=== PATIENT | male | born 1955 | race Caucasian/White ===

== ENCOUNTER 2019-03-19 02:15 | Outpatient (CLI) | payer OTHER, SELFPAY ==
[2019-03-19 11:22] LABS: Calculated LDL 138; Cholesterol 206 mg/dL (50-200); HDL Cholesterol 40 mg/dL (40-60); Triglyceride 140 mg/dL (30-150)
[2019-03-20 10:13] LABS: PSA, Diagnostic 7.1 ng/ml (0-4.5)
== END 2019-03-19 02:35 ==
PROVIDERS: PCP Emergency Medicine; Visit Provider Emergency Medicine
DX: C61 Malignant neoplasm of prostate (principal); Z00.00 Encounter for general adult medical examination without abnormal findings; Z13.220 Encounter for screening for lipoid disorders
CPT/HCPCS: 36415; 80061; 83721; 84153

== ENCOUNTER 2019-04-03 02:03 | Outpatient (CLI) | payer OTHER, SELFPAY ==
[2019-04-06 09:30] LABS: PSA, Diagnostic 7.6 ng/ml (0-4.5)
== END 2019-04-03 02:23 ==
PROVIDERS: PCP Emergency Medicine; Visit Provider Emergency Medicine
DX: C61 Malignant neoplasm of prostate (principal)
CPT/HCPCS: 36415; 84153

== ENCOUNTER 2019-08-07 00:33 | Outpatient (CLI) | payer OTHER, SELFPAY ==
--- NOTE | 2019-08-07 07:45 | DI.US_ITS ---
EXAM: US PROSTATE BIOPSY CLINICAL HISTORY: asymmetric prostate; elevated PSA TECHNIQUE: Ultrasound was provided for Dr. Armstrong for guidance with performing a prostate biopsy. COMPARISON: No exams were available for comparison FINDINGS: The prostate volume is 17 cc. Central prostate calcifications are noted. Please see procedure for details.
--- NOTE | 2019-08-07 09:50 | PROST_PTH ---
PATIENT: Jeronimo Wu LOC: [facility] U#:[id number] AGE/SX: 64/M ROOM: RE08/07/[address]: Echo Berry DNP : 1955 BED: DIS: 08/07/2019 SPEC #: [id number] RECD: 08/07/19 11:43 STATUS: SOFIA REJakob #: [id number] DOMINIC: 08/07/19 09:[address]: Mayo Nicholas DEPT: Surgical Specimen RECD BY: Sheila Colon ENTERED: 08/07/19 11:46 SP TYPE: PROST OTHR DR: Brian Kidd DO Tissues: 1 - PROSTATE CURRETTINGS 2 - PROSTATE CURRETTINGS 3 - PROSTATE CURRETTINGS 4 - PROSTATE CURRETTINGS 5 - PROSTATE CURRETTINGS 6 - PROSTATE CURRETTINGS 7 - PROSTATE CURRETTINGS 8 - PROSTATE CURRETTINGS 9 - PROSTATE CURRETTINGS 10 - PROSTATE CURRETTINGS 11 - PROSTATE CURRETTINGS 12 - PROSTATE CURRETTINGS Procedures: GROSS AND MICRO LEVEL 4 Comments: [id number]
--- NOTE | 2019-08-07 12:02 | ROE_ITS ---
DATE OF PROCEDURE: August 07, 2019 PRE-PROCEDURE DIAGNOSIS: Elevated PSA POST-PROCEDURE DIAGNOSIS: Same with pathology pending. PROCEDURE: Ultrasound-guided biopsy of the prostate. SURGEON: Mayo Nicholas M.D. ANESTHESIA: Local. COMPLICATIONS: None. HISTORY: This is a 64-year-old gentleman who has had an elevated PSA. His current level is 7.6 ng/m L. We have not identified a prostate nodule, but we have found some asymmetry of his prostate on dig ital rectal examination. He presents for ultrasound-guided biopsy. OPERATIVE REPORT: The patient was brought to the radiology suite on 08/07/19. He was given a mechani josesito and antibiotic bowel prep prior to the procedure. He was placed in the left lateral position. Transrectal imaging of the prostate was performed using a variable megahertz transducer. The prostate was imaged in transverse in longitudinal planes. The prostate was quite small and had a volume measurement of 17 cc's. No specific hypoechoic areas w ere seen in the peripheral zone. A few calcifications were seen in the transition zone. A periprostatic nerve block was then performed using 1% Xylocaine. A total of twelve laterally-direc justian biopsies were taken. Each biopsy was labeled and sent to pathology for permanent section. The patient tolerated this procedure well with no complications. He will follow-up in 1 to 2 weeks t o review his surgical pathology. cc: Brian Kidd D.O.
== END 2019-08-07 00:53 ==
PROVIDERS: PCP Emergency Medicine; Visit Provider Nurse Practitioner Gerontology
DX: N40.0 Benign prostatic hyperplasia without lower urinary tract symptoms (principal); N42.89 Other specified disorders of prostate; R97.20 Elevated prostate specific antigen [PSA]; C61 Malignant neoplasm of prostate
CPT/HCPCS: 55700; 76942; 76872; 88305

== ENCOUNTER 2019-09-11 01:42 | Outpatient (CLI) | payer OTHER, SELFPAY ==
--- NOTE | 2019-09-11 09:30 | DI.NM_ITS ---
EXAM: NM BONE SCAN WHOLE BODY GRP CLINICAL HISTORY: baseline study, prostate cancer, C61. TECHNIQUE: Injected Dose: 25 mCi Tc-99m MDP Delayed Images: 2-3 hours. COMPARISON: No exams were available for comparison FINDINGS: Symmetric axial uptake. Bilateral renal excretion is identified. There is a single focus of increased uptake in the cervical spine anteriorly. This likely is degenerative. X-ray of the spine may be ob tained for further evaluation. No other abnormal activity is seen in the axial or appendicular skele ton to suggest metastatic disease. IMPRESSION: 1. No evidence of metastatic disease. 2. Focus of increased radiotracer uptake seen on the frontal view in the mid cervical spine. This ma y be degenerative in nature. X-ray of the cervical spine may be obtained for further evaluation.
--- NOTE | 2019-09-11 09:52 | DI.CT_ITS ---
EXAM: CT ABDOMEN PELVIS W CLINICAL HISTORY: r/o mets, prostate cancer, C61 TECHNIQUE: Imaging Protocol: Axial computed tomography images with coronal and sagittal reformatted images were created and reviewed CONTRAST MATERIAL: Intravenous: Omnipaque 350 Contrast volume:100 mL contrast route:IV - Oral: Yes COMPARISON: No exams were available for comparison FINDINGS: ABDOMEN: Lung Bases: Normal where visualized. Liver: Normal density. There is a 1.5 centimeters simple cyst in the right lobe of the liver. No raj picious hepatic mass is seen. The portal, superior mesenteric and splenic veins are patent. Gallbladder and biliary tract: No radiodense calculus or dilation. Pancreas: Normal density, no abnormal calcifications or inflammatory process. Spleen: Normal. Kidneys: Normal size, contour and axis. No radiodense stones or obstructive uropathy. There is a 0.8 centimeter cyst in the midpole of the right kidney. No suspicious renal mass is present. Adrenal glands: No masses seen. Abdominal Aorta: Atherosclerosis. No aneurysmal dilatation. PELVIS: Bladder: Symmetric distention, no gross wall thickening. Bowel: No obstruction or bowel wall thickening. Peritoneal cavity: No ascites, collection or mesenteric inflammatory response. Bones: Degenerative changes are seen in the spine. Reproductive organs: Within normal limits. Lymph nodes: Unremarkable. Impression: No evidence of abdominal or pelvic metastatic disease. DATA REPOSITORY: All CT scans at this facility are submitted to the National Radiology Data Registry (NRDR) Dose Index Registry (DIR) with the [employer] ([employer]). RADIATION OPTIMIZATION: All CT scans at this facility use at least one of these dose optimization te chniques: automated exposure control; mA and/or kV adjustment per patient size (includes targeted exa ms where dose is matched to clinical indication); or iterative reconstruction.
[2019-09-11] MEDS: Omnipaque 350 MG/ML 100 ML BTL IV (10:27)
[2019-09-11] MEDS: Normal Saline Flush 10 ML SYR IVP (10:28)
== END 2019-09-11 02:02 ==
PROVIDERS: PCP Emergency Medicine; Visit Provider Urology
DX: C61 Malignant neoplasm of prostate (principal); Z12.89 Encounter for screening for malignant neoplasm of other sites; K76.89 Other specified diseases of liver; N28.1 Cyst of kidney, acquired
CPT/HCPCS: 78306; 74177; 82565; J3490

== ENCOUNTER 2020-06-20 15:18 | Inpatient (IN) | payer OTHER, SELFPAY ==
[2020-06-20] VITALS (83 sets, daily range): BP systolic 94–154; BP diastolic 55–138; PULSE 52–79; RESP 14–29; TEMP 35.9–36.7; O2SAT 92–100
--- NOTE | 2020-06-20 15:00 | RT.EKG_ITS ---
APPROVED REPORT Exam: Resting ECG Patient Location: E HR:51 bpm ECG Measurements Heart Rate 51 AXIS TX 169 P 3 QRSd 108 QRS -65 QT 489 T 27 QTc 452 Conclusion Sinus bradycardia...rate< 60 Left anterior fascicular block...axis(240,-40), init forces inf. Sinus. No STEMI. No old EKG to compare.
--- NOTE | 2020-06-20 15:18 | ED.GENADUL_ITS ---
Discharge Plan Disposition Patient Disposition: [facility] INPATIENT Condition: Stable Discharge Details Clinical Impression: Fall from roof, Multiple fractures of ribs, Multiple pelvic fractures, Pneumot horax, Contusion of left lung Admit Date/Time: 06/20/20 17:57 Admit Provider: Tonya Landry Attending Provider: Tonya Landry Primary Care Provider: Brian Kidd ED Provider: Linda Yarbrough Discharge Data Discharge Date/Time-TO BE ENTERED AT DEPARTURE: 06/20/20 20:05 Medical Decision Making 1520 -- 65-year-old male presents after mechanical fall approximately 13 feet off of his roof onto gravel just prior to arrival presents with left lower rib and right groin pain. Heart rate 50s. BP minimally soft 106/72. Slightly diminished breath sounds right chest. Left lower ribs and left upper quadrant tenderness. No midline spinal tenderness. No orthopedic deformities. Suspect rib and pubic ramus fracture. Consider possible pneumothorax versus intra-abdominal injury. Will obtain CT head/cervical spine/chest /abdomen/pelvis/thoracic and lumbar spine. Pt declines narcotic pain meds. Will give a dose of IV Tylenol and fluids. 1644 -- Labs and imaging reviewed. CT head and cervical spine negative. CT tho racic and lumbar spine note degenerative changes but no acute fracture. CT chest notes multiple displaced rib fractures of 1st, 4th, 5th, 6th, 7th, 8th, 9th, 10th, 11th ribs. Small apical less than 20% pneumothorax. Left lower lobe pulmonary contusion. Multiple minimally displaced pelvic fractures noted. 1714 -- Case discussed with Dr. Arteaga. Based on virtual radiology reading of pelvic fractures, no surgical intervention indicated. Will review imaging and see patient tomorrow. Case d/w Dr. Landry who accepts patient for admission. She contacted anesthesia for bedside rib block to be done in ED. Pt again is declining narcotic pain meds. Pt remains hemodynamically stable and doing well on 2L nasal cannula oxygen. Medical Records Medical records reviewed: Yes I reviewed the patient's medical records. Imaging Data Radiologic Study: Radiologist's impression: CT Head Without Contrast Exam date and time: 06/20/2020 3:47 PM Age: 65 years old Clinical indication: Injury or trauma; Initial encounter; Patient HX: S/P fall off roof TECHNIQUE: Imaging protocol: Computed tomography of the head without contrast. COMPARISON: No relevant prior studies available. FINDINGS: Brain: No evidence for acute transcortical infarct. No mass effect or midline shift. No extra-axial collection. No acute intracranial hemorrhage. Basal cisterns are patent. Ventricles: No ventriculomegaly. Bones/joints: Unremarkable. No acute fracture. Paranasal sinuses: Visualized sinuses are unremarkable. No fluid levels. Mastoid air cells: Visualized mastoid air cells are well aerated. Soft tissues: Unremarkable. IMPRESSION: No acute intracranial hemorrhage or mass effect. CT Cervical Spine Without Contrast Exam date and time: 06/20/2020 3:47 PM Age: 65 years old Clinical indication: Injury or trauma; Initial encounter; Patient HX: S/P fall off roof TECHNIQUE: Imaging protocol: Computed tomography images of the cervical spine without contrast. COMPARISON: No relevant prior studies available. FINDINGS: Vertebrae: No acute fracture or traumatic subluxation. No spondylolisthesis. The atlantooccipital and atlantoaxial articulations are intact. Facet joint alignments are maintained. Discs/Spinal canal/Neural foramina: Age-related degenerative disc disease. Multilevel degenerative changes of the cervical spine. Other bones/joints: Occipital condyles are intact. Nondisplaced fracture of the posterior left 1st rib. Prevertebral Space: No prevertebral soft tissue swelling. Soft tissues: Unremarkable. Lungs: Lung apices are normal. Pleural space: Small apical left pneumothorax. IMPRESSION: 1. No acute fracture or traumatic subluxation of the cervical spine. 2. Nondisplaced fracture of the posterior left 1st rib. 3. Small apical left pneumothorax. CT Chest With Contrast Exam date and time: 06/20/2020 4:13 PM Age: 65 years old Clinical indication: Injury or trauma; Initial encounter; Patient HX: S/P fall off roof, tender L post inf ribs/luq TECHNIQUE: Imaging protocol: Computed tomography of the chest with intravenous contrast. COMPARISON: CT ABDOMEN PELVIS W 09/11/2019 9:52 AM FINDINGS: Thyroid: The visualized thyroid gland is unremarkable. Lungs: There is bilateral dependent atelectasis. There are patchy airspace opacities in the left lower lobe, favoring posttraumatic hemorrhagic contusions. The airways are patent. Remainder of the lungs are otherwise clear. Pleural space: There is a small left pneumothorax (less than 20%). There is a small layering left pleural effusion. Heart: Normal in size and configuration. No pericardial effusion. Pulmonary arteries: Normal in course and caliber. Aorta: Aorta is normal in course and caliber. There is no acute aortic pathology appreciated. Great vessels off aortic arch: Aortic arc vessels are unremarkable. Lymph nodes: No adenopathy. Bones/joints: Displaced fractures to the posterolateral segments of the left 1st, 4th, 5th, 6, 7th, 8th, 9th, 10th, and 11th ribs. The most significantly displaced rib fractures are at the left 7th and 8th ribs. No other acutely displaced skeletal fractures are otherwise appreciated. There are [id number] multilevel degenerative changes of the thoracic spine present. Soft tissues: There is soft tissue emphysema throughout the left thoracic wall. IMPRESSION: 1. Posttraumatic injury to the chest, as manifested by a small (less than 20%) left pneumothorax, small layering left pleural effusion, scattered low volume pulmonary contusions in the left lower lobe, and multilevel left rib fractures as detailed above. 2. No evidence for cardiovascular injury. CT Abdomen And Pelvis With Contrast Exam date and time: 06/20/2020 4:13 PM Age: 65 years old Clinical indication: Injury or trauma; Initial encounter; Patient HX: S/P fall off roof, tender L post inf ribs/luq TECHNIQUE: Imaging protocol: Computed tomography of the abdomen and pelvis with intravenous contrast. COMPARISON: CT ABDOMEN PELVIS W 09/11/2019 9:52 AM FINDINGS: Mediastinal space: A small hiatal hernia is present. Liver: There is a diffuse decrease in hepatic parenchymal density, consistent with fatty infiltration. 1.3 cm fluid density lesion in the right hepatic lobe on image 476 series 7 is most in favor with a small hepatic cyst. This can be further evaluated with ultrasound in a nonemergent setting. No acute injury to the liver is otherwise appreciated. Gallbladder and bile ducts: Normal. No calcified stones. No ductal dilation. Pancreas: Normal. No ductal dilation. Spleen: Normal. No splenomegaly. Adrenals: Normal. No mass. Kidneys and ureters: 1 cm simple right renal cyst for which no follow-up is recommended at this time. The kidneys appear otherwise unremarkable without posttraumatic injury. Stomach and bowel: No bowel obstruction, bowel wall thickening, or other acute bowel pathology is appreciated. There is moderate constipation. Appendix: No evidence of appendicitis. Intraperitoneal space: Mild fat stranding at the right pelvic sidewall, as well as in the left pelvic sidewall, this is most likely related to pelvic fractures. Vasculature: No acute vascular injury is appreciated. Lymph nodes: Unremarkable. No enlarged lymph nodes. Bladder: Unremarkable as visualized. Reproductive: Question of prior prostate surgery. Correlation with surgical history recommended. Bones/joints: Comminuted minimally displaced fracture to the right sacral wing. Fracture lines do not extend into the neural foramina. Linear minimally displaced fracture to the right iliac bone with fracture lines extending into the right sacroiliac joint. Comminuted fracture to the base of the right superior pubic ramus with fracture lines questionably involving the right acetabulum. Comminuted minimally displaced fracture to the right inferior pubic ramus. [id number] multilevel degenerative changes of the lumbar spine are present. No other acutely displaced skeletal fractures are grossly noted. Soft tissues: Soft tissue swelling throughout the left lower back and left buttock subcutaneous fat. Calcified injection granulomas are noted in the subcutaneous tissues of the buttocks. IMPRESSION: 1. Multiple posttraumatic pelvic fractures, as detailed above. 2. No solid organ, hollow viscus, or peritoneal injury is appreciated. CT Thoracic Spine Without Contrast Exam date and time: 06/20/2020 4:13 PM Age: 65 years old Clinical indication: Injury or trauma; Patient HX: S/P fall off roof, tender L post inf ribs/luq TECHNIQUE: Imaging protocol: Computed tomography images of the thoracic spine without contrast. COMPARISON: No relevant prior studies available. FINDINGS: Vertebrae: There is minimal anterior wedging deformity at T11, this appears to be chronic in etiology as I do not see any discrete fractured vertebral fragments at this level. There are multilevel degenerative changes of the thoracic spine present, as manifested by decreased intervertebral disc space, endplate sclerosis, and multilevel anterior osteophytes. No other acutely displaced fractures are appreciated. Discs/Spinal canal/Neural foramina: Spinal canal is patent. No significant bony neural foraminal stenosis is appreciated. Other bones/joints: Multilevel left rib fractures are partially visualized. Soft tissues: Mild soft tissue emphysema throughout the left thoracic wall. Pleural space: Partially visualized small left pleural effusion. Partially visualized small left pneumothorax. IMPRESSION: 1. Mild anterior wedging deformity at T11 is felt to be chronic in etiology. Consider correlation with MRI if clinically warranted. No other acute skeletal injury is otherwise appreciated. 2. Posttraumatic injury to the chest which is fully described in the chest CT performed concomitantly, please review. CT Lumbar Spine Without Contrast Exam date and time: 06/20/2020 4:13 PM Age: 65 years old Clinical indication: Injury or trauma; Patient HX: S/P fall off roof, tender L post inf ribs/luq TECHNIQUE: Imaging protocol: Computed tomography images of the lumbar spine without contrast. COMPARISON: No relevant prior studies available. FINDINGS: Vertebrae: No acute skeletal pathology. Moderate multilevel degenerative changes of the spine, as manifested by multilevel anterior osteophytes and multilevel decrease in intervertebral disc space. There is diffuse facet joint hypertrophy noted. Discs/Spinal canal/Neural foramina: There is prominent posterior disc bulging at L3-L4, L4-L5, and L5-S1. This is causing moderate to severe central canal stenosis at L4-L5, as well as severe bilateral neural foraminal stenosis at L3-L4 and moderate bilateral neural foraminal stenosis at L4-L5. There is mild bilateral neural foraminal stenosis at L5-S1. The spinal canal is otherwise patent. No other significant neural foraminal stenosis is otherwise appreciated. Sacrum/coccyx: Redemonstration/partially visualized fractures to the right iliac bone, right sacral wing, and right superior pubic ramus. Soft tissues: Mild soft tissue swelling partially visualized in the left buttock. IMPRESSION: 1. No acute posttraumatic skeletal injury to the lumbar spine. 2. Multilevel degenerative disc disease, as detailed above. 3. Multiple pelvic fractures which are only partially visualized in this examination and are fully described in the abdomen and pelvic CT performed concomitantly; please review. Lab Data Lab results reviewed: Yes I reviewed the patient's lab results. Labs: Laboratory Tests Range/Units 06/20/20 06/20/20 06/20/20 15:50 15:50 15:50 WBC (4.4-10.8) 10^3/uL 6.40 RBC (4.36-5.78) 10^6/uL 4.25 L Hgb (13.5-17.5) g/dL 13.0 L Hct (40.0-50.0) % 39.0 L MCV (80-95) fL 91.8 MCH (27.0-33.0) pg 30.6 MCHC (32.0-36.0) % 33.3 RDW (11.8-14.1) % 12.3 Plt Count (130-400) 10^3/uL 211 MPV (8.0-11.0) fL 9.9 Immature Gran % 2.3 Neutrophils % 77.2 Lymphocytes % 12.2 Monocytes % 6.7 Eosinophils % 1.3 Basophils % 0.3 Nucleated RBC % % 0 Absolute Neutrophils (1.2-6.7) 10^3/uL 4.94 Absolute Lymphocytes (1.2-3.4) 10^3/uL 0.78 L Absolute Monocytes (0.1-0.8) 10^3/uL 0.43 Absolute Eosinophils (0.0-0.7) 10^3/uL 0.08 Absolute Basophils (0.0-0.2) 10^3/uL 0.02 PT (9.3-11.0) sec 10.3 INR (0.9-1.1) 1.0 APTT (21.0-31.4) sec 21.2 Sodium (136-145) mmol/L 143 Potassium (3.5-5.1) mmol/L 3.1 L Chloride (98-107) mmol/L 106 Carbon Dioxide (21.0-32.0) mmol/L 28.5 Anion Gap (3-11) mmol/L 8.5 BUN (7-18) mg/dL 16 Creatinine (0.70-1.30) mg/dL 1.23 Estimated GFR/1.73 m2 (mL/min/1.73m2) 59.43 Glucose (74-106) mg/dL 137 H Calcium (8.5-10.1) mg/dL 9.0 Magnesium (1.8-2.4) mg/dL 2.2 Total Bilirubin (0.2-1.0) mg/dL 0.4 AST (15-37) U/L 144 H ALT (16-63) U/L 148 H Alkaline Phosphatase (46-116) U/L 83 Troponin I (<0.06) ng/mL < 0.05 Total Protein (6.4-8.2) g/dL 6.8 Albumin (3.4-5.0) g/dL 3.8 Lipase (73-393) U/L 244 ECG Data Attestation: I personally reviewed and interpreted this ECG (s) as follows: Interpretation: Rate of 51, sinus, left anterior fascicular block. No acute ST elevation or depression. No old EKG to compare. MD 169. QRS 108. QTc 452. HPI General Mode of arrival: ambulatory . Date/Time Provider Initiated Documentation: 06/20/20 15:24 . Limitations to Documentation: no limitations . Information obtained by: patient . HPI Narrative: Patient is a 65-year-old male with a history of prostate cancer 60 status post completion of his radiation therapy who presents for left lower rib and back pain status post fall off of his roof at home prior to arrival. Patient states he was working on his roof and grabbing his ladder when he slipped and fell approximately 13 feet down onto gravel landing first on the plantar surface of both of his feet then onto his back then head. He denies LOC or vomiting. He denies headache, chest pain, shortness of breath, abdominal pain, neck or midline back pain. He initially stated that the worst of his pain is below his left scapula but then complained of pain in his right groin/hip area. He has not taken any medication for pain. He is unsure of his tetanus status. Related Data Home Medications Medication Instructions Recorded Confirmed Unknown [No Known Home Meds] 03/17/19 06/20/20 Allergies Allergy/AdvReac Type Severity Reaction Status Date / Time No Known Drug Allergies Allergy Verified 06/20/20 15:25 Review of Systems All systems reviewed & are unremarkable except as noted in HPI and below Constitutional Constitutional: Reports as per HPI, Denies chills and Denies fever(s) Eyes Eyes: Denies blurry vision ENT Ears, Nose, Mouth, and Throat: Denies dizziness, Denies sore throat and Denies throat swelling Cardiovascular Cardiovascular: Denies chest pain and Denies dyspnea Respiratory Respiratory: Denies cough and Denies dyspnea Gastrointestinal Gastrointestinal: Denies abdominal pain, Denies diarrhea and Denies vomiting Genitourinary Genitourinary: Denies hematuria and Denies dysuria Musculoskeletal Musculoskeletal: Reports back pain, Denies numbness and Reports other (Pain in right groin and left lower ribs.) Integumentary/Breasts Skin/Breast: Denies lesions and Denies rash Neurologic Neurologic: Denies dizziness, Denies localized weakness and Denies numbness Allergic/Immunologic Allergic/Immunologic: Denies throat swelling [facility] Medical History (Updated 06/21/20 @ 13:18 by Sandoval Arteaga MD) Prostate cancer Surgical History (Updated 03/12/19 @ 12:49 by Dave Colin) Colonoscopy - MAC 2007; NEG 2013; NEG Tonsillectomy and adenoidectomy Vasectomy Family History (Updated 03/23/20 @ 13:35 by Lisa Amado) Mother Hyperlipidemia Diabetes Father , 68 Essential hypertension Neoplasm LUNG Cancer Lung cancer Grandmother Neoplasm Grandmother Neoplasm Other Personal history of malignant neoplasm Social History (Updated 03/23/20 @ 13:33 by Lisa Amado) Smoking/Tobacco Use Status: Never Alcohol Intake: former Drug use: Never Counseling given: No Household members: spouse Housing: house Communication Needs: None Pets and animals: Yes Pets and animals: cat(s), dog(s) and other Details: rabbit Sexually active: Yes Do you think of yourself as: straight/heterosexual Current gender identity: male What is your relationship status?: How often do you talk on the phone with friends or family?: three or more times per week How often do you get together with friends or relatives?: once per week How often do you attend scientology or faith services?: 1-3 times per year Do you belong to any clubs or organized social groups?: yes Panel score (0-1 are the most socially isolated patients): 3 What type of physical activity do you participate in: running Duration: 60-90 minutes/day Frequency: 5-6 times per week Deisi/Episcopal: Druze Seatbelt use: always Helmet use: Yes Drive intox or ride w/intox 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 Superficial abrasions 2. Superficial abrasions Ears: hearing grossly normal bilaterally, external ears normal and TM's normal bilaterally General nose exam: external nose normal Face and sinus: normal facial exam Mouth: oral mucosae normal Teeth and gingiva: dentition normal Throat: posterior oropharynx normal Eyes General: appearance normal, both eyes and all related structures Eyelids: eyelids normal Pupils: PERRL EOM: EOM intact bilaterally Neck Neck: normal visual inspection Lymphatic: no lymphadenopathy noted Chest Chest: normal inspection of the chest Chest/axillae images: 1. Tenderness to palpation of left anterior, lateral and posterior inferior ribs. No obvious step-off or crepitus, ecchymosis, edema or erythema. No abrasions. Resp Effort & Inspection: normal respiratory effort and able to speak in complete sentences Auscultation: diminished lung sounds on the right throughout Cardio Rate: regular rate Rhythm: regular rhythm GI Inspection: normal to inspection and no abdominal wall ecchymosis Palpation: soft, not firm, no guarding, no hepatosplenomegaly, no masses and tender in the LUQ Auscultation: normal bowel sounds Back/Spine/Pelvis Thoracic/Lumbar Spine: thoracic and lumbar spine normal to inspection Pelvis: no pain with anterior-posterior compression and no pain with lateral compression Back/spine/pelvis image: 1. Tenderness to palpation of left posterior inferior ribs. No evidence of trauma. Skin General skin exam: no rashes or lesions noted Neuro General: patient alert and patient awake Cognition: normal cognition Speech: speech normal Motor: muscle tone normal throughout Sensory Exam: no sensory deficits noted Extrem General: full ROM and capillary refill normal Elbow/forearm/wrist images: 1. Superficial abrasions and skin avulsions, no active bleeding. Minimal contamination with gravel. Upper/lower leg/hip images: 1. Tenderness to palpation. No edema, ecchymoses, erythema, abrasions, lacerations or deformity noted. Ankle/foot/toe images: 1. Superficial abrasion and skin avulsion. No active bleeding. Minimal contamination with gravel. Other: No orthopedic deformity noted. Psych Appearance: grossly normal Mental Status: mental status grossly normal Speech and Movement: speech and movement normal Affect: normal affect Thought Process: normal
--- NOTE | 2020-06-20 15:30 | DI.CT_ITS ---
EXAM: CT CHEST/ABD/PEL W CLINICAL HISTORY: s/p fall off roof, tender L post inf ribs/LUQ TECHNIQUE: COMPARISON: CT CT ABDOMEN PELVIS W from 09/11/[address] ABDOMEN PELVIS W from 09/11/2019 FINDINGS: CT examination of the chest, abdomen, and pelvis was performed. Additional targeted reconstructions of thoracic and lumbar spine were also obtained and are interpreted in conjunction with the study. 1 00 cc of Omnipaque 350 was injected intravenously. There are fractures of the left 1st rib and 4th through 11th ribs posterolaterally. Marked displacem ent of 7th and 8th ribs. Moderate subcutaneous emphysema thoracic. Small apical pneumothorax, appro ximately 5 percent of thoracic volume. There is a small left pleural effusion or hemothorax. There are areas of posterior contusion and/or atelectasis in the left lung. No right lung abnormality seen. No right pleural effusion or pneumoth orax. No evidence of vascular injury. No mediastinal or hilar adenopathy. Tracheobronchial tree ap pears intact. Liver spleen and pancreas appear normal. Gallbladder and bile ducts are CT normal. Adrenals and kid neys are intact, no urinary tract obstruction or calcification, no renal cortical injury identified. No free intraperitoneal air or free intraperitoneal fluid seen. No evidence of a vascular injury in the abdomen. No evidence of bowel injury or obstruction. There are fractures of the superior and inferior pubic rami with moderate displacement and involvemen t the inferior most aspect acetabulum the right. There is a moderately comminuted mildly displaced f racture of the right sacral ala at right SI joint with minimal nondisplaced right iliac bone fracture associated also extending to the SI joint. No thoracic or lumbar spine fracture. There are moderate degenerative changes of the spine. IMPRESSION: Multiple left rib fractures with associated small left pneumothorax, hemothorax, and basilar posterol ateral pulmonary contusion and/or atelectasis. Multiple pelvic fractures as described above, involving iliac bone and sacrum at the right SI joint, as well as superior and inferior right pubic rami. No evidence of vascular injury or solid organ injury. RADIATION DOSE DELIVERED: Total DLP
--- NOTE | 2020-06-20 15:30 | DI.CT_ITS ---
EXAM: CT HEAD CERVICAL SPINE WO COMPARISON: No exams were available for comparison FINDINGS: CT examination of the cervical spine was performed without contrast administration. There is no evide nce of acute cervical spine fracture or dislocation. Tracheolaryngeal structures appear intact. No ce rvical mass or adenopathy. Intervertebral disc spaces are well maintained. Note is made of a small left apical pneumothorax and a nondisplaced fracture of the left 1st rib post eriorly. Please see accompanying chest CT report. Noncontrast cranial CT was performed. Ventricular system is normal in appearance. No evidence of acut e intracranial hemorrhage, mass effect, or midline shift. No calvarial fracture. The orbital and temp oral bone structures appear intact. IMPRESSION: Small left apical pneumothorax and nondisplaced posterior left 1st rib fracture. No evidence of acut e cervical spine injury. No evidence of acute intracranial injury. RADIATION DOSE DELIVERED: 1,985.97mGy.cm Total DLP 1,985.97mGy.cm Total DLP DATA REPOSITORY: All CT scans at this facility are submitted to the National Radiology Data Registry (NRDR) Dose Index Registry (DIR) with the [employer] (A[employer]). RADIATION OPTIMIZATION: All CT scans at this facility use at least one of these dose optimization te chniques: automated exposure control; mA and/or kV adjustment per patient size (includes targeted exa ms where dose is matched to clinical indication); or iterative reconstruction.
[2020-06-20] MEDS: ACETAMINOPHEN 1,000 MG/100 ML BTL 400 MG IVPB (15:59)
[2020-06-20] MEDS: Normal Saline 1,000 ML 1000 ML IV (15:59)
[2020-06-20 16:10] LABS: Abs Immature Grans 0.15 10^3/uL (0.0-0.06); Absolute Basophil Count 0.02 10^3/uL (0.0-0.2); Absolute Eosinophil Count 0.08 10^3/uL (0.0-0.7); Absolute Lymphocyte Count 0.78 10^3/uL (1.2-3.4); Absolute Monocyte Count 0.43 10^3/uL (0.1-0.8); Absolute Neutrophil Count 4.94 10^3/uL (1.2-6.7); Basophils % 0.3; Eosinophils % 1.3; Immature Grans % 2.3; Lymphocytes % 12.2; MCH 30.6 pg (27.0-33.0); MCHC 33.3 % (32.0-36.0); MCV 91.8 fL (80-95); MPV 9.9 fL (8.0-11.0); Monocytes % 6.7; Neutrophils % 77.2; Nucleated RBC 0 %; Platelet Count 211 10^3/uL (130-400); RBC 4.25 10^6/uL (4.36-5.78); RDW 12.3 % (11.8-14.1); RDW-SD 40.8 fL
[2020-06-20 16:13] LABS: PTT Activated 21.2 sec (21.0-31.4); Prothrombin Time 10.3 sec (9.3-11.0)
[2020-06-20 16:21] LABS: ALT 148 U/L (16-63); AST 144 U/L (15-37); Albumin 3.8 g/dL (3.4-5.0); Alkaline Phosphatase 83 U/L (46-116); Anion Gap 8.5 mmol/L (3-11); BUN 16 mg/dL (7-18); Bilirubin, Total 0.4 mg/dL (0.2-1.0); CO2 28.5 mmol/L (21.0-32.0); CREATININE 1.23 mg/dL (0.70-1.30); Chloride 106 mmol/L (98-107); Estimated GFR 59.43 (mL/min/1.73m2); Glucose 137 mg/dL (74-106); Lipase 244 U/L (73-393); Magnesium 2.2 mg/dL (1.8-2.4); Potassium 3.1 mmol/L (3.5-5.1); Sodium 143 mmol/L (136-145); Total Protein 6.8 g/dL (6.4-8.2)
[2020-06-20 16:26] LABS: Troponin I < 0.05 ng/mL (<0.06)
--- NOTE | 2020-06-20 17:02 | DI.VRAD_ITS ---
PROCEDURE INFORMATION: Exam: CT Head Without Contrast Exam date and time: 06/20/2020 3:47 PM Age: 65 years old Clinical indication: Injury or trauma; Initial encounter; Patient HX: S/P fall off roof TECHNIQUE: Imaging protocol: Computed tomography of the head without contrast. COMPARISON: No relevant prior studies available. FINDINGS: Brain: No evidence for acute transcortical infarct. No mass effect or midline shift. No extra-axial collection. No acute intracranial hemorrhage. Basal cisterns are patent. Ventricles: No ventriculomegaly. Bones/joints: Unremarkable. No acute fracture. Paranasal sinuses: Visualized sinuses are unremarkable. No fluid levels. Mastoid air cells: Visualized mastoid air cells are well aerated. Soft tissues: Unremarkable. IMPRESSION: No acute intracranial hemorrhage or mass effect. PROCEDURE INFORMATION: Exam: CT Cervical Spine Without Contrast Exam date and time: 06/20/2020 3:47 PM Age: 65 years old Clinical indication: Injury or trauma; Initial encounter; Patient HX: S/P fall off roof TECHNIQUE: Imaging protocol: Computed tomography images of the cervical spine without contrast. COMPARISON: No relevant prior studies available. FINDINGS: Vertebrae: No acute fracture or traumatic subluxation. No spondylolisthesis. The atlantooccipital and atlantoaxial articulations are intact. Facet joint alignments are maintained. Discs/Spinal canal/Neural foramina: Age-related degenerative disc disease. Multilevel degenerative changes of the cervical spine. Other bones/joints: Occipital condyles are intact. Nondisplaced fracture of the posterior left 1st rib. Prevertebral Space: No prevertebral soft tissue swelling. Soft tissues: Unremarkable. Lungs: Lung apices are normal. Pleural space: Small apical left pneumothorax. IMPRESSION: 1. No acute fracture or traumatic subluxation of the cervical spine. 2. Nondisplaced fracture of the posterior left 1st rib. 3. Small apical left pneumothorax. Dictated and Authenticated by: Adonis Acosta MD. Ordering:BENNY Mckeon MD
--- NOTE | 2020-06-20 17:04 | DI.VRAD_ITS ---
PROCEDURE INFORMATION: Exam: CT Chest With Contrast Exam date and time: 06/20/2020 4:13 PM Age: 65 years old Clinical indication: Injury or trauma; Initial encounter; Patient HX: S/P fall off roof, tender L post inf ribs/luq TECHNIQUE: Imaging protocol: Computed tomography of the chest with intravenous contrast. COMPARISON: CT ABDOMEN PELVIS W 09/11/2019 9:52 AM FINDINGS: Thyroid: The visualized thyroid gland is unremarkable. Lungs: There is bilateral dependent atelectasis. There are patchy airspace opacities in the left lower lobe, favoring posttraumatic hemorrhagic contusions. The airways are patent. Remainder of the lungs are otherwise clear. Pleural space: There is a small left pneumothorax (less than 20%). There is a small layering left pleural effusion. Heart: Normal in size and configuration. No pericardial effusion. Pulmonary arteries: Normal in course and caliber. Aorta: Aorta is normal in course and caliber. There is no acute aortic pathology appreciated. Great vessels off aortic arch: Aortic arc vessels are unremarkable. Lymph nodes: No adenopathy. Bones/joints: Displaced fractures to the posterolateral segments of the left 1st, 4th, 5th, 6, 7th, 8th, 9th, 10th, and 11th ribs. The most significantly displaced rib fractures are at the left 7th and 8th ribs. No other acutely displaced skeletal fractures are otherwise appreciated. There are [id number] multilevel degenerative changes of the thoracic spine present. Soft tissues: There is soft tissue emphysema throughout the left thoracic wall. IMPRESSION: 1. Posttraumatic injury to the chest, as manifested by a small (less than 20%) left pneumothorax, small layering left pleural effusion, scattered low volume pulmonary contusions in the left lower lobe, and multilevel left rib fractures as detailed above. 2. No evidence for cardiovascular injury. PROCEDURE INFORMATION: Exam: CT Abdomen And Pelvis With Contrast Exam date and time: 06/20/2020 4:13 PM Age: 65 years old Clinical indication: Injury or trauma; Initial encounter; Patient HX: S/P fall off roof, tender L post inf ribs/luq TECHNIQUE: Imaging protocol: Computed tomography of the abdomen and pelvis with intravenous contrast. COMPARISON: CT ABDOMEN PELVIS W 09/11/2019 9:52 AM FINDINGS: Mediastinal space: A small hiatal hernia is present. Liver: There is a diffuse decrease in hepatic parenchymal density, consistent with fatty infiltration. 1.3 cm fluid density lesion in the right hepatic lobe on image 476 series 7 is most in favor with a small hepatic cyst. This can be further evaluated with ultrasound in a nonemergent setting. No acute injury to the liver is otherwise appreciated. Gallbladder and bile ducts: Normal. No calcified stones. No ductal dilation. Pancreas: Normal. No ductal dilation. Spleen: Normal. No splenomegaly. Adrenals: Normal. No mass. Kidneys and ureters: 1 cm simple right renal cyst for which no follow-up is recommended at this time. The kidneys appear otherwise unremarkable without posttraumatic injury. Stomach and bowel: No bowel obstruction, bowel wall thickening, or other acute bowel pathology is appreciated. There is moderate constipation. Appendix: No evidence of appendicitis. Intraperitoneal space: Mild fat stranding at the right pelvic sidewall, as well as in the left pelvic sidewall, this is most likely related to pelvic fractures. Vasculature: No acute vascular injury is appreciated. Lymph nodes: Unremarkable. No enlarged lymph nodes. Bladder: Unremarkable as visualized. Reproductive: Question of prior prostate surgery. Correlation with surgical history recommended. Bones/joints: Comminuted minimally displaced fracture to the right sacral wing. Fracture lines do not extend into the neural foramina. Linear minimally displaced fracture to the right iliac bone with fracture lines extending into the right sacroiliac joint. Comminuted fracture to the base of the right superior pubic ramus with fracture lines questionably involving the right acetabulum. Comminuted minimally displaced fracture to the right inferior pubic ramus. Sgyi-vi-xugxduqy multilevel degenerative changes of the lumbar spine are present. No other acutely displaced skeletal fractures are grossly noted. Soft tissues: Soft tissue swelling throughout the left lower back and left buttock subcutaneous fat. Calcified injection granulomas are noted in the subcutaneous tissues of the buttocks. IMPRESSION: 1. Multiple posttraumatic pelvic fractures, as detailed above. 2. No solid organ, hollow viscus, or peritoneal injury is appreciated. COMMENTS: THIS REPORT CONTAINS FINDINGS THAT MAY BE CRITICAL TO PATIENT CARE. The findings were verbally communicated via telephone conference with jovi potts at 5:03 PM EDT on 06/20/2020. The findings were acknowledged and understood. Dictated and Authenticated by: Hai Busby MD. Ordering:BENNY Mckeon MD
--- NOTE | 2020-06-20 17:09 | DI.VRAD_ITS ---
PROCEDURE INFORMATION: Exam: CT Thoracic Spine Without Contrast Exam date and time: 06/20/2020 4:13 PM Age: 65 years old Clinical indication: Injury or trauma; Patient HX: S/P fall off roof, tender L post inf ribs/luq TECHNIQUE: Imaging protocol: Computed tomography images of the thoracic spine without contrast. COMPARISON: No relevant prior studies available. FINDINGS: Vertebrae: There is minimal anterior wedging deformity at T11, this appears to be chronic in etiology as I do not see any discrete fractured vertebral fragments at this level. There are multilevel degenerative changes of the thoracic spine present, as manifested by decreased intervertebral disc space, endplate sclerosis, and multilevel anterior osteophytes. No other acutely displaced fractures are appreciated. Discs/Spinal canal/Neural foramina: Spinal canal is patent. No significant bony neural foraminal stenosis is appreciated. Other bones/joints: Multilevel left rib fractures are partially visualized. Soft tissues: Mild soft tissue emphysema throughout the left thoracic wall. Pleural space: Partially visualized small left pleural effusion. Partially visualized small left pneumothorax. IMPRESSION: 1. Mild anterior wedging deformity at T11 is felt to be chronic in etiology. Consider correlation with MRI if clinically warranted. No other acute skeletal injury is otherwise appreciated. 2. Posttraumatic injury to the chest which is fully described in the chest CT performed concomitantly, please review. PROCEDURE INFORMATION: Exam: CT Lumbar Spine Without Contrast Exam date and time: 06/20/2020 4:13 PM Age: 65 years old Clinical indication: Injury or trauma; Patient HX: S/P fall off roof, tender L post inf ribs/luq TECHNIQUE: Imaging protocol: Computed tomography images of the lumbar spine without contrast. COMPARISON: No relevant prior studies available. FINDINGS: Vertebrae: No acute skeletal pathology. Moderate multilevel degenerative changes of the spine, as manifested by multilevel anterior osteophytes and multilevel decrease in intervertebral disc space. There is diffuse facet joint hypertrophy noted. Discs/Spinal canal/Neural foramina: There is prominent posterior disc bulging at L3-L4, L4-L5, and L5-S1. This is causing moderate to severe central canal stenosis at L4-L5, as well as severe bilateral neural foraminal stenosis at L3-L4 and moderate bilateral neural foraminal stenosis at L4-L5. There is mild bilateral neural foraminal stenosis at L5-S1. The spinal canal is otherwise patent. No other significant neural foraminal stenosis is otherwise appreciated. Sacrum/coccyx: Redemonstration/partially visualized fractures to the right iliac bone, right sacral wing, and right superior pubic ramus. Soft tissues: Mild soft tissue swelling partially visualized in the left buttock. IMPRESSION: 1. No acute posttraumatic skeletal injury to the lumbar spine. 2. Multilevel degenerative disc disease, as detailed above. 3. Multiple pelvic fractures which are only partially visualized in this examination and are fully described in the abdomen and pelvic CT performed concomitantly; please review. Dictated and Authenticated by: Hai Busby MD. Ordering:BENNY Mckeon MD
[2020-06-20] MEDS: Potassium Chloride 20 MEQ TABCR 40 MEQ PO (17:37)
--- NOTE | 2020-06-20 18:49 | HPE_ITS ---
Date of service: 06/20/20 Time of Service: 18:50 Assessment and Plan Assessment and plan (1) Fall from roof: Status: Acute (2) Pneumothorax: Status: Acute (3) Contusion of left lung: Status: Acute (4) Multiple fractures of ribs: Status: Acute Assessment and plan: * anesthesia did rib and femoral blocks-good results pulm toilet Ortho will eval pelvic Fx. Tx is non- surgical. Keep pt in bed until eval pain control PT supportive care hold lovenox for 24 hrs. CXR in am Other injuries may become apparent throughout hosp. stay covid test done in ED (5) Diverticulosis: Status: Acute (6) Tinnitus: Status: Acute (7) Multiple pelvic fractures: Status: Acute (8) Prostate cancer: Status: Chronic History of Present Illness Consults Consult date: 06/20/20 Requesting physician: Linda Yarbrough Narrative: pt fell 13' off of roof. Occurred while adjusting ladder. no s/s of CVA or [place] prior to accident. NO CP or SOB. No LOC. C spine cleared by ED. rib block adn pelvic block done no n/v. no numbness or tingling in hands/feet. covid was completed c/o pain when taking deep breathes adn moving R leg. Recently finished Tx or prostate CA. Review of Systems All systems reviewed & are unremarkable except as noted in HPI and below PFSH Medical History (Updated 06/20/20 @ 18:00 by Linda Yarbrough DO) Prostate cancer Surgical History (Updated 03/12/19 @ 12:49 by Dave Colin) Colonoscopy - MAC 2007; NEG 2013; NEG Tonsillectomy and adenoidectomy Vasectomy Family History (Updated 03/23/20 @ 13:35 by Lisa Amado) Mother Hyperlipidemia Diabetes Father , 68 Essential hypertension Neoplasm LUNG Cancer Lung cancer Grandmother Neoplasm Grandmother Neoplasm Other Personal history of malignant neoplasm Social History (Updated 03/23/20 @ 13:33 by Lisa Amado) Smoking/Tobacco Use Status: Never Alcohol Intake: former Drug use: Never Counseling given: No Household members: spouse Housing: house Communication Needs: None Pets and animals: Yes Pets and animals: cat(s), dog(s) and other Details: rabbit Sexually active: Yes Do you think of yourself as: straight/heterosexual Current gender identity: male What is your relationship status?: How often do you talk on the phone with friends or family?: three or more times per week How often do you get together with friends or relatives?: once per week How often do you attend yarsani or yarsani services?: 1-3 times per year Do you belong to any clubs or organized social groups?: yes Panel score (0-1 are the most socially isolated patients): 3 What type of physical activity do you participate in: running Duration: 60-90 minutes/day Frequency: 5-6 times per week Deisi/Confucianism: [employer] Seatbelt use: always Helmet use: Yes Drive intox or ride w/intox corporate driver: No Meds Home Medications and Allergies Home Medications Medication Instructions Recorded Confirmed Type Unknown [No Known Home Meds] 03/17/19 06/20/20 History Allergies Allergy/AdvReac Type Severity Reaction Status Date / Time No Known Drug Allergies Allergy Verified 06/20/20 15:25 Exam Const General: cooperative, healthy appearing, comfortable, no acute distress, well developed and well groomed Nutritional Appearance: average body habitus and well nourished Orientation: alert, awake and oriented x3 HENMT Head: normal to inspection, normocephalic, abrasion and scalp tenderness Ears: hearing grossly normal bilaterally and external ears normal General nose exam: external nose normal Face and sinus: normal facial exam and sinuses nontender Mouth: oral mucosae normal, lip normal, tongue normal and moist mucous membranes Teeth and gingiva: dentition normal Eyes General: appearance normal, both eyes and all related structures Conjunctivae: conjunctivae normal Sclera: sclerae normal Pupils: PERRL Neck Neck: normal visual inspection and full ROM Chest Chest: normal inspection of the chest Resp Effort & Inspection: normal respiratory effort, able to speak in complete sentences, no cough, no nasal flaring, not tachypneic and no use of accessory muscles Auscultation: clear to auscultation bilaterally, no rales, no rhonchi and no wheezes Cardio Jugular venous pressure: no JVD Rate: regular rate Rhythm: regular rhythm GI Inspection: normal to inspection, no edema and non-distended Palpation: soft, no masses, nontender and No ascites Auscultation: normal bowel sounds Back/Spine/Pelvis Back: CVA tenderness (left) and back tenderness (not over SP/TP but over the rib Fx. no abrasions ) Cervical Spine: normal cervical lordosis and cervical ROM normal Thoracic/Lumbar Spine: thoracic and lumbar spine normal to inspection Pelvis: tenderness over symphysis pubis Other: pain over R iliac crest Skin General skin exam: no rashes or lesions noted Trauma: no lacerations or abrasions Neuro General: patient alert, patient oriented x3, oriented, tone normal, moves all extremities, no focal motor deficits and CN's II-XI intact bilaterally Cranial Nerves: CN's II-XI intact bilaterally, sense of smell intact, EOM intact bilaterally and facial strength normal Cognition: normal cognition Speech: speech normal Gait: normal gait Motor: muscle tone normal throughout Extrem General: normal to inspection and no clubbing, cyanosis or edema Other: pain when moving R leg. no pain in long bones. motor 4/5 in all except RLE. pulses 2/2- coratid/ulnar/DP abrasion L forarm and LLE Psych Appearance: grossly normal and well kempt Mental Status: mental status grossly normal Speech and Movement: speech and movement normal Affect: normal affect Results Labs Result diagrams: 06/20/20 15:50 06/20/20 15:50 Labs: Laboratory Results - last 24 hr 06/20/20 06/20/20 06/20/20 15:50 15:50 15:50 WBC 6.40 RBC 4.25 L Hgb 13.0 L Hct 39.0 L MCV 91.8 MCH 30.6 MCHC 33.3 RDW 12.3 Plt Count 211 MPV 9.9 Immature Gran % 2.3 Neutrophils % 77.2 Lymphocytes % 12.2 Monocytes % 6.7 Eosinophils % 1.3 Basophils % 0.3 Nucleated RBC % 0 Absolute Neutrophils 4.94 Absolute Lymphocytes 0.78 L Absolute Monocytes 0.43 Absolute Eosinophils 0.08 Absolute Basophils 0.02 PT 10.3 INR 1.0 APTT 21.2 Sodium 143 Potassium 3.1 L Chloride 106 Carbon Dioxide 28.5 Anion Gap 8.5 BUN 16 Creatinine 1.23 Estimated GFR/1.73 m2 59.43 Glucose 137 H Calcium 9.0 Magnesium 2.2 Total Bilirubin 0.4 AST 144 H ALT 148 H Alkaline Phosphatase 83 Troponin I < 0.05 Total Protein 6.8 Albumin 3.8 Lipase 244 Last Vital Signs Temp 35.9 C L 06/20/20 15:12 Pulse 70 06/20/20 18:31 Resp 25 H 06/20/20 18:31 BP 125/80 06/20/20 18:31 Pulse Ox 98 06/20/20 18:31 COVID-19 Screening Have you,or household,traveled outside [place] in last 14 days?: No Had IN PERSON contact w/suspected or confirmed C-19 person: No
[2020-06-20] MEDS: Bupivacaine 0.25% Pres-Free 30 ML VIAL ×2 (18:54→18:55)
[2020-06-20] MEDS: Bupivacaine 0.25% Pres-Free 10 ML VIAL (18:54)
--- NOTE | 2020-06-20 19:19 | NUR.NOTE ---
procedure in room as planned , pt tolerated well Nursing Note:
[2020-06-20 19:44] LABS: Bilirubin Negative (Negative); Blood Trace-lysed (Negative); Clarity Clear (Clear); Glucose Negative (Negative); Ketones Negative (Negative); Leukocyte Esterase Negative (Negative); Nitrite Negative (Negative); Urobilinogen 0.2 EU/dL (Up TO 0.2)
[2020-06-20] MEDS: Normal Saline 1,000 ML 82 ML IV (19:47)
[2020-06-20 19:55] LABS: Bacteria Negative HPF (Negative); C & S Indicated? No; Casts Negative LPF (Negative); Crystals Negative HPF (Negative); Epithelial Cells Rare HPF (Negative); Mucus Negative (Negative); WBC 0-2 HPF (0-5)
--- NOTE | 2020-06-20 19:55 | NUR.NOTE ---
pt had a block procedure as planned at the right groin for pain , tolerated well Nursing Note:
[2020-06-20] MEDS: Gabapentin 100 MG CAP PO (21:16)
[2020-06-20] MEDS: Ketorolac 15 MG/ML VIAL IVP (21:16)
[2020-06-20 21:52] LABS: Troponin I < 0.05 ng/mL (<0.06)
[2020-06-21] VITALS (141 sets, daily range): BP systolic 102–143; BP diastolic 63–95; PULSE 61–146; RESP 14–31; TEMP 36.7–37.4; O2SAT 92–98
[2020-06-21] MEDS: Ketorolac 15 MG/ML VIAL IVP ×4 (02:00→20:15)
[2020-06-21 06:53] LABS: ALT 105 U/L (16-63); AST 66 U/L (15-37); Albumin 3.1 g/dL (3.4-5.0); Alkaline Phosphatase 60 U/L (46-116); Anion Gap 7.2 mmol/L (3-11); BUN 14 mg/dL (7-18); Bilirubin, Total 0.6 mg/dL (0.2-1.0); CO2 25.8 mmol/L (21.0-32.0); CREATININE 1.02 mg/dL (0.70-1.30); Calcium 8.6 mg/dL (8.5-10.1); Chloride 108 mmol/L (98-107); Glucose 115 mg/dL (74-106); Sodium 141 mmol/L (136-145); Total Protein 5.4 g/dL (6.4-8.2)
[2020-06-21 06:56] LABS: Abs Immature Grans 0.09 10^3/uL (0.0-0.06); Absolute Basophil Count 0.01 10^3/uL (0.0-0.2); Absolute Eosinophil Count 0.01 10^3/uL (0.0-0.7); Absolute Lymphocyte Count 0.37 10^3/uL (1.2-3.4); Absolute Monocyte Count 0.63 10^3/uL (0.1-0.8); Basophils % 0.1; Eosinophils % 0.1; HCT 31.1 % (40.0-50.0); HGB 10.8 g/dL (13.5-17.5); Immature Grans % 1.2; MCHC 34.7 % (32.0-36.0); MCV 89.4 fL (80-95); Monocytes % 8.5; Neutrophils % 85.1; Nucleated RBC 0 %; Platelet Count 142 10^3/uL (130-400); RBC 3.48 10^6/uL (4.36-5.78); RDW 12.5 % (11.8-14.1); RDW-SD 40.7 fL; WBC 7.41 10^3/uL (4.4-10.8)
[2020-06-21 06:58] LABS: Troponin I < 0.05 ng/mL (<0.06)
--- NOTE | 2020-06-21 07:13 | DI.VRAD_ITS ---
PROCEDURE INFORMATION: Exam: XR Chest, 1 View Exam date and time: 06/21/2020 6:50 AM Age: 65 years old Clinical indication: Injury or trauma; Fall; Follow-up exam; Blunt trauma (contusions or hematomas); Injury date: 06/20/20; Injury details: Trauma/ptx TECHNIQUE: Imaging protocol: XR of the chest Views: 1 view. COMPARISON: CT CHEST/ABD/PEL W 06/20/2020 4:11 PM FINDINGS: Lungs: Medial basilar opacity at the left lung base may reflect atelectasis versus pneumonia. Pleural space: Unremarkable. No pleural effusion. No pneumothorax. Heart/Mediastinum: Unremarkable. No cardiomegaly. Bones/joints: Unremarkable. IMPRESSION: Medial basilar opacity at the left lung base may reflect atelectasis versus pneumonia. Dictated and Authenticated by: Israel Gatica MD. Ordering:HAZEL Castaneda MD
--- NOTE | 2020-06-21 07:55 | PGE_ITS ---
Date of Service Date of service: 06/21/20 Time of Service: 07:55 Assessment and Plan Assessment and plan (1) Fall from roof: Status: Acute (2) Pneumothorax: Status: Acute Assessment and plan: Chest Xray this morning showed small left apical pneumothorax. (3) Contusion of left lung: Status: Acute (4) Multiple fractures of ribs: Status: Acute Assessment and plan: Good effect with rib blocks. Pain well controlled Encouraged deep breathing and use of incentive spirometer supportive care Other injuries may become apparent throughout hosp. stay covid test done in ED (5) Diverticulosis: Status: Acute (6) Tinnitus: Status: Acute (7) Multiple pelvic fractures: Status: Acute Assessment and plan: Awaiting Ortho Consult Keep patient in bed until he has been seen by Ortho. (8) Prostate cancer: Status: Chronic Subjective Subjective Interval history since last seen: Patient reports that his pain is well controlled this morning. Mild rib discomfort with deep breathing. Slept well over night. Exam Const General: cooperative, healthy appearing and comfortable Orientation: alert and oriented x3 Resp Effort & Inspection: normal respiratory effort, no audible wheezes and no cough Objective Last Vital Signs Temp 36.7 C 06/21/20 05:12 Pulse 69 06/21/20 05:12 Resp 21 06/21/20 05:12 BP 112/69 06/21/20 05:12 Pulse Ox 95 06/21/20 05:12 Laboratory Results - last 24 hr 06/20/20 06/20/20 06/20/20 15:50 15:50 15:50 WBC 6.40 RBC 4.25 L Hgb 13.0 L Hct 39.0 L MCV 91.8 MCH 30.6 MCHC 33.3 RDW 12.3 Plt Count 211 MPV 9.9 Immature Gran % 2.3 Neutrophils % 77.2 Lymphocytes % 12.2 Monocytes % 6.7 Eosinophils % 1.3 Basophils % 0.3 Nucleated RBC % 0 Absolute Neutrophils 4.94 Absolute Lymphocytes 0.78 L Absolute Monocytes 0.43 Absolute Eosinophils 0.08 Absolute Basophils 0.02 PT 10.3 INR 1.0 APTT 21.2 Sodium 143 Potassium 3.1 L Chloride 106 Carbon Dioxide 28.5 Anion Gap 8.5 BUN 16 Creatinine 1.23 Estimated GFR/1.73 m2 59.43 Glucose 137 H Calcium 9.0 Magnesium 2.2 Total Bilirubin 0.4 AST 144 H ALT 148 H Alkaline Phosphatase 83 Troponin I < 0.05 Total Protein 6.8 Albumin 3.8 Lipase 244 Urine Color Urine Clarity Urine pH Ur Specific [place] Urine Protein Urine Ketones Urine Blood Urine Nitrite Urine Bilirubin Urine Urobilinogen Ur Leukocyte Esterase Urine RBC Urine WBC Ur Epithelial Cells Urine Crystals Urine Bacteria Urine Casts Urine Mucus Ur Culture Indicated? Urine Glucose 06/20/20 06/20/20 06/21/20 19:30 21:05 06:07 WBC RBC Hgb Hct MCV MCH MCHC RDW Plt Count MPV Immature Gran % Neutrophils % Lymphocytes % Monocytes % Eosinophils % Basophils % Nucleated RBC % Absolute Neutrophils Absolute Lymphocytes Absolute Monocytes Absolute Eosinophils Absolute Basophils PT INR APTT Sodium 141 Potassium 4.0 D Chloride 108 H Carbon Dioxide 25.8 Anion Gap 7.2 BUN 14 Creatinine 1.02 Estimated GFR/1.73 m2 >= 60.00 Glucose 115 H Calcium 8.6 Magnesium Total Bilirubin 0.6 AST 66 H ALT 105 H Alkaline Phosphatase 60 Troponin I < 0.05 < 0.05 Total Protein 5.4 L Albumin 3.1 L Lipase Urine Color Yellow Urine Clarity Clear Urine pH 5.0 Ur Specific [place] 1.010 Urine Protein Negative Urine Ketones Negative Urine Blood Trace-lysed H Urine Nitrite Negative Urine Bilirubin Negative Urine Urobilinogen 0.2 Ur Leukocyte Esterase Negative Urine RBC 3-5 H Urine WBC 0-2 Ur Epithelial Cells Rare Urine Crystals Negative Urine Bacteria Negative Urine Casts Negative Urine Mucus Negative Ur Culture Indicated? No Urine Glucose Negative 06/21/20 06:07 WBC 7.41 RBC 3.48 L Hgb 10.8 L D Hct 31.1 L D MCV 89.4 MCH 31.0 MCHC 34.7 RDW 12.5 Plt Count 142 MPV 10.0 Immature Gran % 1.2 Neutrophils % 85.1 Lymphocytes % 5.0 Monocytes % 8.5 Eosinophils % 0.1 Basophils % 0.1 Nucleated RBC % 0 Absolute Neutrophils 6.30 Absolute Lymphocytes 0.37 L Absolute Monocytes 0.63 Absolute Eosinophils 0.01 Absolute Basophils 0.01 PT INR APTT Sodium Potassium Chloride Carbon Dioxide Anion Gap BUN Creatinine Estimated GFR/1.73 m2 Glucose Calcium Magnesium Total Bilirubin AST ALT Alkaline Phosphatase Troponin I Total Protein Albumin Lipase Urine Color Urine Clarity Urine pH Ur Specific [place] Urine Protein Urine Ketones Urine Blood Urine Nitrite Urine Bilirubin Urine Urobilinogen Ur Leukocyte Esterase Urine RBC Urine WBC Ur Epithelial Cells Urine Crystals Urine Bacteria Urine Casts Urine Mucus Ur Culture Indicated? Urine Glucose
[2020-06-21 08:23] LABS: COVID-19 RT-PCR UVMMC Result Negative (Negative)
--- NOTE | 2020-06-21 08:30 | DI.RAD_ITS ---
EXAM: XR PORTABLE CHEST AP CLINICAL HISTORY: ptx/trauma TECHNIQUE: COMPARISON: CT CT THORACIC LUMBAR SPINE REC from 06/20/[address] CHEST/ABD/PEL W from 06/20/2020 FINDINGS: Multiple left rib fractures again noted. Probable small left apical pneumothorax noted. Mild hazy d ensity overlying left lower lung field, effusion versus contusion. Probable atelectasis at the left lung base. Appropriate follow-up studies requested. No gross interval change from chest CT findings obtained yesterday evening. IMPRESSION: RADIATION DOSE DELIVERED: Total DLP
[2020-06-21] MEDS: ACETAMINOPHEN 1,000 MG/100 ML BTL 400 MG IVPB ×3 (08:42→16:39)
--- NOTE | 2020-06-21 08:51 | PDOC.CMIN ---
- If Service Date Differs Date of service: 06/21/20 Time of Service: 08:51 Care Management Initial Assess REASON FOR HOSPITALIZATION:: Fall from roof PAST MEDICAL HISTORY/PAST SURGICAL HISTORY:: Medical History (Updated 06/20/20 @ 18:00 by Linda Yarbrough DO). Prostate cancer. Surgical History (Updated 03/12/19 @ 12:49 by Dave Colin). Colonoscopy - MAC. 2007; NEG. 2013; NEG. Tonsillectomy and adenoidectomy. Vasectomy PREVIOUS FUNCTIONAL STATUS/SOCIAL/FAMILY SUPPORTS:: Randy lives with his and 2 sons in a single family home in [place] 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 He is healthy, active and independent at baserline. CURRENT FUNCTIONAL STATUS:: Randy was sitting up in bed when CM met with him. He engaged readily in conversation and was pleasant and exhibited a good sense of humor. he described the fall that resulted in his injuries and talked a bit about his family. ADVANCE DIRECTIVES:: None on file. Has a blank copy which he hopes to complete while at [facility] Has patient been provided with info about the portal/API?: Yes Did the patient sign up for the portal?: Yes (formerly) CODE STATUS:: Full Code CURRENT HOME/COMMUNITY SERVICES/EQUIPMENT:: none PRIMARY CARE PHYSICIAN:: Brian Kidd POTENTIAL DISCHARGE NEEDS:: Follow up with PCP, surgeon and discharge plan of care PATIENT/FAMILY EDUCATION NEEDS:: Discharge plan, follow up, limitations, Ask Me Three TRANSPORTATION:: via private vehicle with family PLAN:: Randy will likely be discharged home with no new services. He will follow up with his PCP and discharge plan of care. He will transport home with via private vehicle.CM will continue to support patient, family and discharge planning needs.
[2020-06-21] MEDS: Bacitracin 30 GM TUBE TP (09:06)
--- NOTE | 2020-06-21 10:47 | W.NUTRFU ---
Date of service: 06/21/20 Time of Service: 10:47 Nutritional Follow up NOTE: 65 year old male admitted to ICU s/p fall from roof with multiple rib fractures. BMI 27, wnl for age. Tolerating clears, diet advanced per surgery. Will continue to monitor and follow. Does not appear at nutritional risk at this time. Time Spent in Nutritional Counseling and Treatment: 0 time spent face to face
--- NOTE | 2020-06-21 13:11 | W.ORTHOCONSU ---
Date of service: 06/21/20 Time of Service: 13:11 History of Present Illness History of Present Illness Chief Complaint: Right groin pain Narrative: There is a 65-year-old right ear male who was working on his roof yesterday when he slipped and fell approximately 13 feet down to the gravel. He was seen and evaluated emergency room. He was found to have broken ribs on the left and a minimal pneumothorax. He was found to have a fracture of the right side of his pelvis as well. Fracture of the inferior and superior pubic rami possibly reaching the acetabulum. She also was noted to have fracture of the posterior iliac wing not entering the SI joint. He reports that he feels quite comfortable at rest to the ICU. He is not asking for any pain medicines. He has not been out of bed yet. He denies any numbness in his right lower extremity. Assessment and Plan Assessment and plan (1) Multiple pelvic fractures: Status: Acute Assessment and plan: Assessment: These appropriate fractures do not pose an operative indication. The hip joint is not involved on the right side. Pubic rami fracture in the posterior iliac wing fracture should heal without sequelae. I do think he needs to use a leg assistant professor of surgery on the right side him get his right leg in and out of bed. He should be able to be mobilized with a walker partial weightbearing as tolerated to the right leg. Plan: I have sent a consult the PT to begin mobilizing him today. He will be partial weightbearing as tolerated to the right leg with a walker. There also can provide him with a leg assistant professor of surgery to help him get his right leg in and out of bed, which will be the most difficulty he has. He should follow-up with me in 1 month. Qualifiers: Encounter type: initial encounter Fracture alignment: without disruption of pelvic ring COUNT INCLUDES THE [facility] Medical History (Updated 06/21/20 @ 13:18 by Sandoval Arteaga MD) Prostate cancer Surgical History (Updated 03/12/19 @ 12:49 by Dave Colin) Colonoscopy - MAC 2007; NEG 2013; NEG Tonsillectomy and adenoidectomy Vasectomy Family History (Updated 03/23/20 @ 13:35 by Lisa Amado) Mother Hyperlipidemia Diabetes Father , 68 Essential hypertension Neoplasm LUNG Cancer Lung cancer Grandmother Neoplasm Grandmother Neoplasm Other Personal history of malignant neoplasm Social History (Updated 03/23/20 @ 13:33 by Lisa Xiong Smoking/Tobacco Use Status: Never Alcohol Intake: former Drug use: Never Counseling given: No Household members: spouse Housing: house Communication Needs: None Pets and animals: Yes Pets and animals: cat(s), dog(s) and other Details: rabbit Sexually active: Yes Do you think of yourself as: straight/heterosexual Current gender identity: male What is your relationship status?: How often do you talk on the phone with friends or family?: three or more times per week How often do you get together with friends or relatives?: once per week How often do you attend yarsani or episcopal services?: 1-3 times per year Do you belong to any clubs or organized social groups?: yes Panel score (0-1 are the most socially isolated patients): 3 What type of physical activity do you participate in: running Duration: 60-90 minutes/day Frequency: 5-6 times per week Deisi/Rastafarian: Congregation Seatbelt use: always Helmet use: Yes Drive intox or ride w/intox car pick up driver: No Exam Narrative Exam Narrative: Neurovascular examination of the right foot is completely normal at this time, with 5/5 strength to resistance in all muscle groups. I can flex his right hip to 90 degrees and internal and external rotation do not cause him any pain. He does experience pain when I abduct him about 20 degrees. Her pain is in his right groin. I reviewed the CT scan of his pelvis. CT scan shows a fracture of the inferior and superior pubic rami on the right. I do not feel her fractures extend into the acetabulum. He has a small vertical fracture of the posterior ilium on the right. This fracture does not extend into the SI joint on the right. There is no significant displacement of the fractures. Results Last Vital Signs Temp 36.7 C 06/21/20 11:28 Pulse 85 06/21/20 13:00 Resp 20 06/21/20 13:00 BP 143/93 H 06/21/20 13:00 Pulse Ox 93 06/21/20 13:00 Labs Result diagrams: 06/21/20 06:07 06/21/20 06:07 Labs: Laboratory Results - last 24 hr 06/20/20 06/20/20 06/20/20 15:50 15:50 15:50 WBC 6.40 RBC 4.25 L Hgb 13.0 L Hct 39.0 L MCV 91.8 MCH 30.6 MCHC 33.3 RDW 12.3 Plt Count 211 MPV 9.9 Immature Gran % 2.3 Neutrophils % 77.2 Lymphocytes % 12.2 Monocytes % 6.7 Eosinophils % 1.3 Basophils % 0.3 Nucleated RBC % 0 Absolute Neutrophils 4.94 Absolute Lymphocytes 0.78 L Absolute Monocytes 0.43 Absolute Eosinophils 0.08 Absolute Basophils 0.02 PT 10.3 INR 1.0 APTT 21.2 Sodium 143 Potassium 3.1 L Chloride 106 Carbon Dioxide 28.5 Anion Gap 8.5 BUN 16 Creatinine 1.23 Estimated GFR/1.73 m2 59.43 Glucose 137 H Calcium 9.0 Magnesium 2.2 Total Bilirubin 0.4 AST 144 H ALT 148 H Alkaline Phosphatase 83 Troponin I < 0.05 Total Protein 6.8 Albumin 3.8 Lipase 244 Urine Color Urine Clarity Urine pH Ur Specific [place] Urine Protein Urine Ketones Urine Blood Urine Nitrite Urine Bilirubin Urine Urobilinogen Ur Leukocyte Esterase Urine RBC Urine WBC Ur Epithelial Cells Urine Crystals Urine Bacteria Urine Casts Urine Mucus Ur Culture Indicated? Urine Glucose COVID-19 PCR Nasopharyn COVID-19 PCR Ref Test Perform Site 06/20/20 06/20/20 06/20/20 18:35 19:30 21:05 WBC RBC Hgb Hct MCV MCH MCHC RDW Plt Count MPV Immature Gran % Neutrophils % Lymphocytes % Monocytes % Eosinophils % Basophils % Nucleated RBC % Absolute Neutrophils Absolute Lymphocytes Absolute Monocytes Absolute Eosinophils Absolute Basophils PT INR APTT Sodium Potassium Chloride Carbon Dioxide Anion Gap BUN Creatinine Estimated GFR/1.73 m2 Glucose Calcium Magnesium Total Bilirubin AST ALT Alkaline Phosphatase Troponin I < 0.05 Total Protein Albumin Lipase Urine Color Yellow Urine Clarity Clear Urine pH 5.0 Ur Specific [place] 1.010 Urine Protein Negative Urine Ketones Negative Urine Blood Trace-lysed H Urine Nitrite Negative Urine Bilirubin Negative Urine Urobilinogen 0.2 Ur Leukocyte Esterase Negative Urine RBC 3-5 H Urine WBC 0-2 Ur Epithelial Cells Rare Urine Crystals Negative Urine Bacteria Negative Urine Casts Negative Urine Mucus Negative Ur Culture Indicated? No Urine Glucose Negative COVID-19 PCR Negative Nasopharyn COVID-19 PCR Not Applicable Ref Test [facility]21[facility] 06/21/20 06:07 06:07 WBC 7.41 RBC 3.48 L Hgb 10.8 L D Hct 31.1 L D MCV 89.4 MCH 31.0 MCHC 34.7 RDW 12.5 Plt Count 142 MPV 10.0 Immature Gran % 1.2 Neutrophils % 85.1 Lymphocytes % 5.0 Monocytes % 8.5 Eosinophils % 0.1 Basophils % 0.1 Nucleated RBC % 0 Absolute Neutrophils 6.30 Absolute Lymphocytes 0.37 L Absolute Monocytes 0.63 Absolute Eosinophils 0.01 Absolute Basophils 0.01 PT INR APTT Sodium 141 Potassium 4.0 D Chloride 108 H Carbon Dioxide 25.8 Anion Gap 7.2 BUN 14 Creatinine 1.02 Estimated GFR/1.73 m2 >= 60.00 Glucose 115 H Calcium 8.6 Magnesium Total Bilirubin 0.6 AST 66 H ALT 105 H Alkaline Phosphatase 60 Troponin I < 0.05 Total Protein 5.4 L Albumin 3.1 L Lipase Urine Color Urine Clarity Urine pH Ur Specific [place] Urine Protein Urine Ketones Urine Blood Urine Nitrite Urine Bilirubin Urine Urobilinogen Ur Leukocyte Esterase Urine RBC Urine WBC Ur Epithelial Cells Urine Crystals Urine Bacteria Urine Casts Urine Mucus Ur Culture Indicated? Urine Glucose COVID-19 PCR Nasopharyn COVID-19 PCR Ref Test Perform Site
[2020-06-21] MEDS: Normal Saline 1,000 ML 50 ML IV (13:18)
[2020-06-21] MEDS: Normal Saline Flush 10 ML SYR IVP ×2 (14:45→20:17)
--- NOTE | 2020-06-21 14:45 | PHA.REVIEW ---
Pharmacy Admission Review - Admission Clinical Review (Last Updated 08/24/19 @ 16:27 by Mayo Nicholas MD) Fall from roof (Acute) Multiple fractures of ribs (Acute) Multiple pelvic fractures (Acute) Pneumothorax (Acute) Contusion of left lung (Acute) Diverticulosis (Acute) Tinnitus (Acute) No Known Drug Allergies Allergy (Verified 06/20/20 15:25) Height 5 ft 9 in Weight 83.5 kg - Renal Dosing Renal Dosing: BUN 14 mg/dL (7-18) 06/21/20 06:07 Creatinine 1.02 mg/dL (0.70-1.30) 06/21/20 06:07 Medications needing adjustments: Reviewed (Crcl ~74 mL/min current meds okay) - Anticoagulation Anticoagulation: Hgb 10.8 g/dL (13.5-17.5) L D 06/21/20 06:07 Hct 31.1 % (40.0-50.0) L D 06/21/20 06:07 Plt Count 142 10^3/uL (130-400) 06/21/20 06:07 INR 1.0 (0.9-1.1) 06/20/20 15:50 Creatinine 1.02 mg/dL (0.70-1.30) 06/21/20 06:07 DVT Prohphylaxis: Reviewed (Enoxaparin held for 24 hours per H&PMD to continue to hold for now due to drop in H/H.) - Opiate Usage Scheduled Bowel Reg ordered if on Opiates?: No (has prn docusate ordered) - Relevant Labs Sodium 141 mmol/L (136-145) 06/21/20 06:07 Potassium 4.0 mmol/L (3.5-5.1) D 06/21/20 06:07 Chloride 108 mmol/L (98-107) H 06/21/20 06:07 Magnesium 2.2 mg/dL (1.8-2.4) 06/20/20 15:50 Electrolytes, C-Reactive P, ESR: Reviewed (AST-66 ALT-105 both have decreased since admission) - DM Control DM Control: Glucose 115 mg/dL (74-106) H 06/21/20 06:07 Insulin Dosing: Reviewed (BG slighltly elevated this morning, no DM noted in pts medical history) - Heart Failure/WV Heart Failure/WV: Troponin I < 0.05 ng/mL (<0.06) 06/21/20 06:07 EF%, TRACEY's, B-Blockers, Diuretics: N/A - BP Control BP Control: Blood Pressure [Left Arm] 112/69 Blood Pressure [Left Arm] 124/82 Blood Pressure 143/93 Blood Pressure 113/76 Blood Pressure 117/67 Blood Pressure 110/69 If elevated: Reviewed (BP has mostly been within normal limits with a couple of highs and lows.) - Qtc Review If Elevated: N/A (QTc 452) - IV to PO Switch IV Medications: Reviewed - Home Meds Home Med List reviewed: Reviewed (No home meds noted. Per external med history pt was taking tamsulosin 1 cap PO BID. Mentioned to provider who was going to check to see if pt still taking this.) - Current meds Current Medication Order Review: Reviewed - Comments Comments/Follow Ups: Watch BP, K+, BG, H/H, LFTs, and for med changes (IV to PO, possible start of VTE prophylaxis pending H/H tomorrow, possible need of additional BM meds)
--- NOTE | 2020-06-21 15:44 | IN_ITS ---
Date of service: 06/21/20 Time of Service: 15:44 PT Notes Visit Reasons: FALL FROM HEIGHT/RIB FX;PTX/PELVIS FX Physical Therapy Inpatient Initial Evaluation Date: 06/21/2020 Referring Doctor: Sandoval Arteaga MD PT Orders: PT CONSULT: Eval for assistive device. He is PWBAT to right leg. Leg senior java web application developer to help him get his right leg in and out of bed. Precautions: Fall. Standard. PWB on R LE. Patient Profile/Admitting Diagnosis: Randy is a 65-year-old male with prostate ca ncer who presented to the ED on 06/20/2022 a mechanical fall 13 feet from a roof while doing an nan detailing onto a gravelled ground surface. Patient is diagnosed with pneumothorax, contusion of left lung, multiple rib fractures, multiple pelvic fractures involving the inferior and the superior pubic rami as well as the the posterior iliac wing, diverticulosis, and tinnitus. PMHX: Medical History (Updated 06/20/20 @ 18:00 by Linda Yarbrough DO) Prostate cancer Surgical History (Updated 03/12/19 @ 12:49 by Dave Colin) Colonoscopy - MAC 2007; NEG 2013; NEG Tonsillectomy and adenoidectomy Vasectomy Social History/Home Situation: Randy lives in a private home with the . Independent with all aspects of ADLs without the need for any assistive ambulatory device nor adaptive equipment. 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 He verbalizes that he plans to stay on the main floor of the house on a recliner while recovering as his bedroom is on the second floor of the house. Equipment Owned/DME: None Subjective: Randy reports significant pain in his right hip and ribs with supine to sit movement transition. He does say that the use of the leg senior java web application developer has really made a difference. He denies headache, chest pain, and dizziness throughout PT session. Objective: General Observation: Telemetry monitoring in place. IV access in right UE. Mental Status: Alert and oriented x4 Pain: 3?4/10 to right hip and rib area Vital Signs: Heart rate high of 142 bpm and low of 76 bpm throughout session ROM: Right Upper Extremity: Shoulder Flexion WFL. Shoulder abduction WFL. Elbow flexion WFL. Wrist flexion WFL. Opening and closing of hand WFL. Left Upper Extremity: Shoulder Flexion WFL. Shoulder abduction WFL. Elbow flexion WFL. Wrist flexion WFL. Opening and closing of hand WFL. Right Lower Extremity: Hip flexion only allows flexion to 90 and is unable to bend beyond 90 degrees while seated at edge of bed. Hip abduction WFL. Knee flexion 45 degrees to 90 degrees. Knee extension only allows up to -45 degrees ankle dorsiflexion WFL. Ankle plantarflexion WFL. Left Lower Extremity: Hip flexion WFL. Hip abduction WFL. Knee flexion WFL. Ankle dorsiflexion WFL. Ankle plantarflexion WFL. Strength: Right Upper Extremity: Shoulder flexors 5/5. Shoulder abductors 5/5. Elbow flexors 5/5. Elbow extensors 5/5. Inspector Automatic Typewriter strong. Left Upper Extremity: Shoulder flexors 5/5. Shoulder abductors 5/5. Elbow flexors 5/5. Elbow extensors 5/5. Inspector Automatic Typewriter strong. Right Lower Extremity: Hip flexors 3-/5. Hip abductors 3-/5. Knee flexors 3-/5. Knee extensors 3-/5. Ankle dorsiflexors 4/5. Ankle plantarflexors 4/5. Left Lower Extremity:Hip flexors 4/5. Hip abductors 4/5. Knee flexors 5/5. Knee extensors 5/5. Ankle dorsiflexors 4/5. Ankle plantarflexors 5/5. Sensation: Intact as to pain and pressure on bilateral lower extremities. Bed Mobility/Transfers: Supine to sit minimal assist to BLE, requires use of leg senior java web application developer on right LE Sit to stand contact-guard assist Stand to sit contact-guard assist Bed to chair contact-guard assist Gait: Tolerated in room ambulation of 6 steps forward and 4 steps back using front wheeled walker with partial weightbearing on the right side with contact- guard assist PT with 3?4/10 pain in the right hip and ribs with step to gait pattern. Balance: Static Sitting: Normal Dynamic Sitting: Good Static Standing: Fair Dynamic Standing: Fair Special Tests: Mobility Limitations Standardized Measure [facility] AM-PAC 6 clicks Basic Mobility Inpatient Short Form: Raw Score: 1558% deficit CMS Score: 58% deficit Informed Consent/Education: Patient instructed in purpose of PT consult and plan of care. Assessment: Bill demonstrates significant functional mobility decline requiring the use of a front wheeled walker for all mobility ADL performance as well as contact-guard assist from caregiver, difficulty with walking, impairment with balance, and increased risk for falls due to admitting diagnoses. Randy is a 65-year-old male with prostate cancer who presented to the ED on 06/20/2022 a mechanical fall 13 feet from a roof while doing an nan detailing onto a gravelled ground surface. Patient is diagnosed with pneumothorax, contusion of left lung, multiple rib fractures, multiple pelvic fractures involving the inferior and the superior pubic rami as well as the the posterior iliac wing, diverticulosis, and tinnitus. Patient presents with clinical signs and symptoms consistent with current/admitting diagnoses that have resulted to mobility limitations, gait instability, generalized weakness, and impairment of motor control as demonstrated by the following impairment level findings: 1. Decreased strength to right hip major muscle groups 2. Impaired sitting/standing balance 3. Impaired activity tolerance 4. Limitation of joint range of motion in right hip Impairments are contributing to the following functional limitations: 1. Dependent bed mobility skills 2. Increased dependence with transfers 3. Inability to safely ambulate without assistive device and physical assistance 4. Increase completion time for mobility ADL performance 5. Increased fall risk 6. Inability to negotiate steps alone safely Patient is assessed as a 57373 moderate complexity based on the following: History: 65-year-old male with impairment level findings, functional limitations, and past medical history as indicated above Examination: Demonstrable impairment in strength, balance, and mobility level with underlying impairments and functional limitations as documented above Presentation:Evolving Decision Makin moderate complexity Goals: Goals X1 week 1. Supine-Sit independent 2. Sit-Supine independent 3. Sit-Stand independent 4. Stand-Sit independent 5. Bed-Chair independent 6. Chair-Bed independent 7. Independent gait on level surface with use of least restrictive device for at least 300 feet without report of pain nor dyspnea 8. Independent stair negotiation while holding onto bilateral rails for at least 5 steps without report of pain nor dyspnea 9. Independent with home exercise program 10. Good static and dynamic standing balance/tolerance Plan of Care/Treatment Plan: 1-2x/day, 7 days/week x 1 week. Plan of care has been reviewed with the PLASTER FORM MAKER providing the service under Physical Therapy direction. Initiate Physical Therapy intervention for strengthening, bed mobility, transfers, gait, stairs, balance training, use of assistive device. DISCHARGE RECOMMENDATIONS: Patient will benefit from the use of a front wheel walker to maximize independence at discharge destination. Patient will benefit from home health PT services in order to progress mobility level using least restrictive assistive ambulatory device, assess home safety, identify additional equipment needs, and establish a functional maintenance program that will incr ease ability of patient to remain at home. TREATMENT CODE/TIME: 9716 2 x 25 minutes beginning at 15:44 PM. Thank you for the opportunity to participate in the care of this patient. Melody Bearden PT, DPT, CLT [facility] [place], [place]
--- NOTE | 2020-06-21 16:00 | RT.EKG_ITS ---
APPROVED REPORT Exam: Resting ECG Patient Location: I HR:123 bpm ECG Measurements Heart Rate 123 AXIS NC [id number] P [id number] QRSd 95 QRS -54 QT 320 T 46 QTc 458 Conclusion Atrial fibrillation. Left anterior fascicular block...axis(240,-40), init forces inf
[2020-06-21 17:14] LABS: HCT 29.1 % (40.0-50.0); HGB 10.1 g/dL (13.5-17.5); MCH 31.2 pg (27.0-33.0); MCHC 34.7 % (32.0-36.0); MCV 89.8 fL (80-95); MPV 9.9 fL (8.0-11.0); Platelet Count 114 10^3/uL (130-400); RBC 3.24 10^6/uL (4.36-5.78); RDW 12.4 % (11.8-14.1); RDW-SD 40.9 fL; WBC 6.57 10^3/uL (4.4-10.8)
[2020-06-21 17:31] LABS: ALT 88 U/L (16-63); AST 55 U/L (15-37); Albumin 2.9 g/dL (3.4-5.0); Alkaline Phosphatase 59 U/L (46-116); Anion Gap 8.5 mmol/L (3-11); BUN 12 mg/dL (7-18); Bilirubin, Total 0.6 mg/dL (0.2-1.0); CO2 24.5 mmol/L (21.0-32.0); CREATININE 1.22 mg/dL (0.70-1.30); Calcium 7.9 mg/dL (8.5-10.1); Chloride 103 mmol/L (98-107); Estimated GFR 59.99 (mL/min/1.73m2); Glucose 146 mg/dL (74-106); Potassium 3.5 mmol/L (3.5-5.1); Sodium 136 mmol/L (136-145); Total Protein 5.4 g/dL (6.4-8.2); Troponin I < 0.05 ng/mL (<0.06)
[2020-06-21] MEDS: Metoprolol 5 MG/5 ML VIAL IVP (17:35)
[2020-06-21] MEDS: Metoprolol 5 MG/5 ML VIAL 2.5 MG IVP (18:23)
--- NOTE | 2020-06-21 19:34 | W.MEDCONSULT ---
Date of service: 06/21/20 Time of Service: 19:34 Assessment and Plan Assessment and plan (1) Atrial fibrillation with rapid ventricular response: Status: Acute Assessment and plan: Unclear as to etiology. It does not sound like he has a problem with frequent snoring although his brother has a history of sleep apnea.. He has had no exertional dyspnea or exertional chest pain prior to his traumatic fall. We will check thyroid function test in the morning and cycle his troponin levels through the night. We will proceed with an echocardiogram in the morning. I am recommending starting low-dose Lopressor orally with PRN IV Lopressor as needed for sustained heart rates of 130 or higher. I would not anticoagulate him beyond DVT prophylaxis at this point as he has a low risk for stroke his [id number] score was 0. He had a CT of his chest and abdomen and pelvis last night with contrast and it showed no evidence for pulmonary emboli. He does have left lung contusion and multiple rib fractures. It is possible that the atrial fibrillation may have been precipitated just from the chest wall trauma. We will get an echocardiogram to rule out cardiac contusion. (2) Contusion of left lung: Status: Acute Assessment and plan: Analgesic management as per surgery Qualifiers: Encounter type: initial encounter Qualified Code(s): S27.321A - Contusion of lung, unilateral, initial encounter (3) Pneumothorax: Status: Acute Assessment and plan: Follow-up chest x-ray in the morning to assess stability currently asymptomatic. Qualifiers: Pneumothorax type: traumatic Encounter type: initial encounter Qualified Code(s): S27.0XXA - Traumatic pneumothorax, initial encounter (4) Multiple pelvic fractures: Status: Acute Assessment and plan: Analgesic management as per surgery and orthopedic service. Continue with physical therapy as tolerated. Qualifiers: Encounter type: initial encounter Fracture alignment: with stable disruption of pelvic ring (5) Multiple fractures of ribs: Status: Acute Assessment and plan: Continue incentive spirometry and pain management as per surgery Qualifiers: Encounter type: initial encounter Laterality: left History of Present Illness History of Present Illness Chief Complaint: Atrial fibrillation Narrative: 65-year-old male history of prostate cancer status post completion of treatment who presented emergency room last night after sustaining a fall off of a ladder falling 13 feet and sustaining multiple left-sided rib fractures associated with a small apical pneumothorax as well as multiple pelvic fractures involving right ilium and sacrum at the SI joint as well as right superior and inferior pubic rami involving the inferior right acetabulum. Patient underwent multiple nerve blocks. Patient was admitted to general surgery service with consultations to orthopedics. He is being treated conservatively as these are nonoperative fractures. This afternoon patient developed rapid atrial fibrillation with heart rates in the 150-160 range while ambulating. Patient was asymptomatic during the episode. He underwent serial troponins last night this morning to rule out an acute PA as a cause for his fall from the ladder. Apparently there was no syncope with his fall last night and no CVA occurred and no myocardial infarction occurred. With his rapid atrial fibrillation he is responded nicely to IV Lopressor and has transiently gone in and out of sinus rhythm. His atrial fibrillation is now at a controlled rate. He is not currently a candidate for systemic anticoagulation due to his multiple traumatic injuries. Serial troponins are being monitored again this evening and the first set was negative at 5 PM. His ECG did not show acute ST elevation but he has diffuse ST depression that is upward sloping of about 1 mm across the precordial leads as well as limb lead I in limb lead II. Patient denies any lightheadedness or dizziness prior to the fall and no chest pain or pressure prior to the fall and he had no syncope. He had good relief of his pain with the nerve block last night. He was getting up for physical therapy to the chair late this afternoon around 4 PM when he developed the tachycardia. He was entirely asymptomatic. Since the rapid atrial fibrillation has been treated with a couple doses of Lopressor and is in transient return to sinus rhythm only to go back into atrial fibrillation at a controlled rate. Review of his [id number] score is 0 indicating no need for long-term anticoagulation. I discussed in great detail with the patient potential causes for rapid atrial fibrillation including occult ischemic heart disease, essential hypertension, sleep apnea, hyperthyroidism, valvular heart disease, pulmonary embolism. Clinically he has no chest pain or dyspnea making ischemic heart disease and pulmonary embolism unlikely. He was not sedentary prior to the fall. I told him that we would pursue further work-up including obtaining an echocardiogram in the morning monitoring serial troponin levels and getting thyroid function tests in the morning. Review of Systems All systems reviewed & are unremarkable except as noted in HPI and below PFSH Medical History (Updated 06/21/20 @ 20:40 by Logan Mullen) Prostate cancer Surgical History (Updated 03/12/19 @ 12:49 by Dave Colin) Colonoscopy - MAC 2007; NEG 2013; NEG Tonsillectomy and adenoidectomy Vasectomy Family History (Updated 03/23/20 @ 13:35 by Lisa Amado) Mother Hyperlipidemia Diabetes Father , 68 Essential hypertension Neoplasm LUNG Cancer Lung cancer Grandmother Neoplasm Grandmother Neoplasm Other Personal history of malignant neoplasm Social History (Updated 03/23/20 @ 13:33 by Lisa Amado) Smoking/Tobacco Use Status: Never Alcohol Intake: former Drug use: Never Counseling given: No Household members: spouse Housing: house Communication Needs: None Pets and animals: Yes Pets and animals: cat(s), dog(s) and other Details: rabbit Sexually active: Yes Do you think of yourself as: straight/heterosexual Current gender identity: male What is your relationship status?: How often do you talk on the phone with friends or family?: three or more times per week How often do you get together with friends or relatives?: once per week How often do you attend rastafari or latter-day services?: 1-3 times per year Do you belong to any clubs or organized social groups?: yes Panel score (0-1 are the most socially isolated patients): 3 What type of physical activity do you participate in: running Duration: 60-90 minutes/day Frequency: 5-6 times per week Deisi/Taoism: Roman Catholic Seatbelt use: always Helmet use: Yes Drive intox or ride w/intox experienced truck driver: No Exam Narrative Exam Narrative: Middle-age male sitting up in bed watching TV in no distress. He is entirely alert and oriented person place time circumstance able to carry on full conversations with no dyspnea. HEENT is unremarkable. Neck is supple nontender normal carotid pulse no bruits no cervical lymphadenopathy no thyromegaly. Lungs are clear to auscultation although he has some diminished breath sounds at the left lung base. Heart irregular irregular at a controlled rate without murmur or rub Abdomen soft and nontender Lower extremities without calf tenderness or edema Results Last Vital Signs Temp 36.7 C 06/21/20 11:28 Pulse 84 06/21/20 18:23 Resp 26 H 06/21/20 17:10 BP 118/80 06/21/20 18:23 Pulse Ox 97 06/21/20 15:20 Labs Result diagrams: 06/21/20 12:44 06/21/20 17:05 Labs: Laboratory Results - last 24 hr 06/20/20 06/20/20 06/20/20 18:35 19:30 21:05 WBC RBC Hgb Hct MCV MCH MCHC RDW Plt Count MPV Immature Gran % Neutrophils % Lymphocytes % Monocytes % Eosinophils % Basophils % Nucleated RBC % Absolute Neutrophils Absolute Lymphocytes Absolute Monocytes Absolute Eosinophils Absolute Basophils Sodium Potassium Chloride Carbon Dioxide Anion Gap BUN Creatinine Estimated GFR/1.73 m2 Glucose Calcium Total Bilirubin AST ALT Alkaline Phosphatase Troponin I < 0.05 Total Protein Albumin Urine Color Yellow Urine Clarity Clear Urine pH 5.0 Ur Specific [place] 1.010 Urine Protein Negative Urine Ketones Negative Urine Blood Trace-lysed H Urine Nitrite Negative Urine Bilirubin Negative Urine Urobilinogen 0.2 Ur Leukocyte Esterase Negative Urine RBC 3-5 H Urine WBC 0-2 Ur Epithelial Cells Rare Urine Crystals Negative Urine Bacteria Negative Urine Casts Negative Urine Mucus Negative Ur Culture Indicated? No Urine Glucose Negative COVID-19 PCR Negative Nasopharyn COVID-19 PCR Not Applicable Ref Test Perform Site [facility] lab 06/21/20 06/21/20 06/21/20 06:07 06:07 12:44 WBC 7.41 6.57 RBC 3.48 L 3.24 L Hgb 10.8 L D 10.1 L Hct 31.1 L D 29.1 L MCV 89.4 89.8 MCH 31.0 31.2 MCHC 34.7 34.7 RDW 12.5 12.4 Plt Count 142 114 L MPV 10.0 9.9 Immature Gran % 1.2 Neutrophils % 85.1 Lymphocytes % 5.0 Monocytes % 8.5 Eosinophils % 0.1 Basophils % 0.1 Nucleated RBC % 0 Absolute Neutrophils 6.30 Absolute Lymphocytes 0.37 L Absolute Monocytes 0.63 Absolute Eosinophils 0.01 Absolute Basophils 0.01 Sodium 141 Potassium 4.0 D Chloride 108 H Carbon Dioxide 25.8 Anion Gap 7.2 BUN 14 Creatinine 1.02 Estimated GFR/1.73 m2 >= 60.00 Glucose 115 H Calcium 8.6 Total Bilirubin 0.6 AST 66 H ALT 105 H Alkaline Phosphatase 60 Troponin I < 0.05 Total Protein 5.4 L Albumin 3.1 L Urine Color Urine Clarity Urine pH Ur Specific [place] Urine Protein Urine Ketones Urine Blood Urine Nitrite Urine Bilirubin Urine Urobilinogen Ur Leukocyte Esterase Urine RBC Urine WBC Ur Epithelial Cells Urine Crystals Urine Bacteria Urine Casts Urine Mucus Ur Culture Indicated? Urine Glucose COVID-19 PCR Nasopharyn COVID-19 PCR Ref Test Perform Site 06/21/20 17:05 WBC RBC Hgb Hct MCV MCH MCHC RDW Plt Count MPV Immature Gran % Neutrophils % Lymphocytes % Monocytes % Eosinophils % Basophils % Nucleated RBC % Absolute Neutrophils Absolute Lymphocytes Absolute Monocytes Absolute Eosinophils Absolute Basophils Sodium 136 Potassium 3.5 Chloride 103 Carbon Dioxide 24.5 Anion Gap 8.5 BUN 12 Creatinine 1.22 Estimated GFR/1.73 m2 59.99 Glucose 146 H Calcium 7.9 L Total Bilirubin 0.6 AST 55 H ALT 88 H Alkaline Phosphatase 59 Troponin I < 0.05 Total Protein 5.4 L Albumin 2.9 L Urine Color Urine Clarity Urine pH Ur Specific [place] Urine Protein Urine Ketones Urine Blood Urine Nitrite Urine Bilirubin Urine Urobilinogen Ur Leukocyte Esterase Urine RBC Urine WBC Ur Epithelial Cells Urine Crystals Urine Bacteria Urine Casts Urine Mucus Ur Culture Indicated? Urine Glucose COVID-19 PCR Nasopharyn COVID-19 PCR Ref Test Perform Site
[2020-06-21] MEDS: Gabapentin 100 MG CAP PO (20:55)
[2020-06-21] MEDS: Metoprolol 12.5 MG TAB PO (20:55)
[2020-06-21 21:52] LABS: Troponin I < 0.05 ng/mL (<0.06)
--- NOTE | 2020-06-21 23:24 | NUR.NOTE ---
12-15-pt was in sinus rhythm at the beginning of the 12-15 shift while resting in bed. PT and this nurse got pt oob and he stated feeling great but his heart rate started to increase with very frequent pac's. Pt then went into a-fib with heart rates as high as 150 but pt denied any discomfort. put back to bed with 2 nurses and ekg was done. reportred to MD. medicated with 5mg iv lopressor with heart rates decreasing to 80's and 90's and going in and out of a-fib and sinus. pt mostly stayed in a-fib for the 12-15 shift [address] controlled rate[address] Mullen in and assessed pt.
[2020-06-22] VITALS (68 sets, daily range): BP systolic 99–130; BP diastolic 65–82; PULSE 58–110; RESP 14–29; TEMP 36.7–37.6; O2SAT 90–100
[2020-06-22] MEDS: ACETAMINOPHEN 1,000 MG/100 ML BTL 400 MG IVPB ×3 (00:14→16:30)
--- NOTE | 2020-06-22 01:37 | NUR.NOTE ---
0139-awake. checking e-mails. In good spirits. states pain is at a 1. voided 500 cc clear straw colored urine in urinal Working with leg strap from PT to help excercise right leg. keep it from getting stiff
[2020-06-22] MEDS: Ketorolac 15 MG/ML VIAL IVP ×3 (02:22→15:40)
[2020-06-22] MEDS: Metoprolol 12.5 MG TAB PO (05:52)
--- NOTE | 2020-06-22 06:30 | NUR.NOTE ---
0600-spontaneously converted to NSR. EKG done for rhythm change.
--- NOTE | 2020-06-22 07:00 | RT.EKG_ITS ---
APPROVED REPORT Exam: Resting ECG Patient Location: I HR:64 bpm ECG Measurements Heart Rate 64 AXIS SC 190 P 35 QRSd 103 QRS -41 QT 400 T 33 QTc 414 Conclusion Sinus rhythm...normal P axis, V-rate 60- 99 Left axis deviation...QRS axis (-30,-90)
[2020-06-22 07:26] LABS: HGB 10.7 g/dL (13.5-17.5)
[2020-06-22 07:41] LABS: Anion Gap 3.9 mmol/L (3-11); BUN 11 mg/dL (7-18); CO2 27.1 mmol/L (21.0-32.0); CREATININE 1.03 mg/dL (0.70-1.30); Calcium 8.4 mg/dL (8.5-10.1); Chloride 107 mmol/L (98-107); Glucose 102 mg/dL (74-106); Potassium 3.9 mmol/L (3.5-5.1); Sodium 138 mmol/L (136-145)
[2020-06-22 07:55] LABS: Calculated LDL 86 mg/dL (<100); Cholesterol 155 mg/dL (<200); HDL Cholesterol 51 mg/dL (40-60); Magnesium 1.9 mg/dL (1.8-2.4); TSH (W/Ref FT4) 1.29 uIU/mL (0.36-3.74); Triglyceride 90 mg/dL (<150)
--- NOTE | 2020-06-22 08:12 | W.PM.PROGNOT ---
Documented by User: RASHAAD Hall 06/22/20 08:15 Date of Service Date of service: 06/22/20 Time of Service: 08:13 Assessment and Plan Assessment and plan (1) Fall from roof: Status: Acute (2) Pneumothorax: Status: Acute Assessment and plan: Chest Xray this morning Qualifiers: Encounter type: initial encounter Pneumothorax type: traumatic Qualified Code(s): S27.0XXA - Traumatic pneumothorax, initial encounter (3) Contusion of left lung: Status: Acute Qualifiers: Encounter type: initial encounter Qualified Code(s): S27.321A - Contusion of lung, unilateral, initial encounter (4) Multiple fractures of ribs: Status: Acute Assessment and plan: Good effect with rib blocks. Pain well controlled Encouraged deep breathing and use of incentive spirometer supportive care Qualifiers: Encounter type: initial encounter Laterality: left (5) Diverticulosis: Status: Acute (6) Tinnitus: Status: Acute (7) Multiple pelvic fractures: Status: Acute Assessment and plan: Per Ortho Consult- weight bearing as tolerated. Qualifiers: Encounter type: initial encounter Fracture alignment: with stable disruption of pelvic ring (8) Prostate cancer: Status: Chronic (9) Atrial fibrillation with rapid ventricular response: Status: Acute Assessment and plan: Per nsg converted to normal rhythm around 5-6am this morning. Patient is asymptomatic Echo and EKG ordered for this morning. Subjective Subjective Interval history since last seen: Just a little sore with certain movements. Exam Const General: cooperative, healthy appearing and comfortable Orientation: alert and oriented x3 Resp Effort & Inspection: normal respiratory effort, no audible wheezes and no cough Objective Last Vital Signs Temp 37.6 C H 06/22/20 00:00 Pulse 69 06/22/20 06:01 Resp 18 06/22/20 06:30 BP 113/76 06/22/20 06:01 Pulse Ox 94 06/22/20 06:30 Laboratory Results - last 24 hr 06/20/20 06/21/20 06/21/20 18:35 12:44 17:05 WBC 6.57 RBC 3.24 L Hgb 10.1 L Hct 29.1 L MCV 89.8 MCH 31.2 MCHC 34.7 RDW 12.4 Plt Count 114 L MPV 9.9 Sodium 136 Potassium 3.5 Chloride 103 Carbon Dioxide 24.5 Anion Gap 8.5 BUN 12 Creatinine 1.22 Estimated GFR/1.73 m2 59.99 Glucose 146 H Calcium 7.9 L Magnesium Total Bilirubin 0.6 AST 55 H ALT 88 H Alkaline Phosphatase 59 Troponin I < 0.05 Total Protein 5.4 L Albumin 2.9 L Triglycerides Total Cholesterol LDL Cholesterol, Calc HDL Cholesterol TSH COVID-19 PCR Negative Nasopharyn COVID-19 PCR Not Applicable Ref Test Perform Site [facility] lab 06/21/20 06/22/20 06/22/20 21:15 06:33 06:33 WBC RBC Hgb 10.7 L Hct MCV MCH MCHC RDW Plt Count MPV Sodium Potassium Chloride Carbon Dioxide Anion Gap BUN Creatinine Estimated GFR/1.73 m2 Glucose Calcium Magnesium 1.9 Total Bilirubin AST ALT Alkaline Phosphatase Troponin I < 0.05 Total Protein Albumin Triglycerides 90 Total Cholesterol 155 LDL Cholesterol, Calc 86 HDL Cholesterol 51 TSH 1.29 COVID-19 PCR Nasopharyn COVID-19 PCR Ref Test Perform Site 06/22/20 06:33 WBC RBC Hgb Hct MCV MCH MCHC RDW Plt Count MPV Sodium 138 Potassium 3.9 Chloride 107 Carbon Dioxide 27.1 Anion Gap 3.9 BUN 11 Creatinine 1.03 Estimated GFR/1.73 m2 >= 60.00 Glucose 102 Calcium 8.4 L Magnesium Total Bilirubin AST ALT Alkaline Phosphatase Troponin I Total Protein Albumin Triglycerides Total Cholesterol LDL Cholesterol, Calc HDL Cholesterol TSH COVID-19 PCR Nasopharyn COVID-19 PCR Ref Test Perform Site Documented by User: Tonya Landry DO 06/22/20 23:27 Assessment and Plan Assessment and plan (1) Multiple pelvic fractures: Status: Acute Assessment and plan: Patient was having severe pain this morning and could not even walk. We cannot do blocks again until . So we will have to use narcotics until that time for pain control. Patient seen and examined. Agree with above. Patient may have some mild changes in the left lower lobe of lung. He definitely needs to have a bowel movement and these issues were addressed. Is going to be a long road for him for recovery and lots of physical therapy in his future Hemoglobin is holding at 10.7 this afternoon Qualifiers: Encounter type: initial encounter Fracture alignment: with stable disruption of pelvic ring
[2020-06-22] MEDS: Tamsulosin 0.4 MG CAPCR PO (08:17)
[2020-06-22] MEDS: Bacitracin 30 GM TUBE TP (08:29)
--- NOTE | 2020-06-22 10:16 | DI.RAD_ITS ---
EXAM: XR PORTABLE CHEST AP CLINICAL HISTORY: Left pneumothorax TECHNIQUE: COMPARISON: CR,XR XR PORTABLE CHEST AP from 06/21/2020 FINDINGS: Portable AP chest semi-upright at 0958 hours. Heart is not enlarged. Right lung is clear and well expanded. Small persistent left apical pneumothorax noted in a patient with multiple left rib fractures. There is mildly increasing opacity at the left lung base in comparison with prior radiographs of Jun. This may represent increasing atelectasis, consolidation, or pleural effusion. If clini estevan indicated additional evaluation with PA and lateral chest or chest CT may be considered. IMPRESSION: RADIATION DOSE DELIVERED: Total DLP
[2020-06-22] MEDS: Metoprolol CR 25 MG TABCR 12.5 MG PO (11:01)
[2020-06-22] MEDS: HYDROmorphone 2 MG/ML VIAL 1 MG IVP (12:47)
[2020-06-22] MEDS: Docusate Sodium 100 MG CAP PO (12:50)
[2020-06-22] MEDS: Normal Saline Flush 10 ML SYR IVP ×3 (12:51→17:33)
--- NOTE | 2020-06-22 12:58 | PGE_ITS ---
Date of Service Date of service: 06/22/20 Time of Service: 12:58 Assessment and Plan Assessment and plan (1) Atrial fibrillation with rapid ventricular response: Status: Acute Assessment and plan: This appears to been lone atrial fibrillation and he does not require antidysrhythmic's. I put him on a low dose of Toprol-XL to help maintain sinus rhythm. I would keep him on this for about a month and then he could probably come off the Toprol-XL. I would get outpatient studies to look for secondary causes for atrial fibrillation such as sleep apnea or ischemic heart disease. However given his excellent physical condition prior to his fall it does not sound like he has any symptoms that would suggest underlying ischemic heart disease. Nevertheless given his age I think this should be ruled out. I think the atrial fibrillation was probably secondary to the traumatic fall and chest contusion. We are awaiting results of echocardiogram to rule out any myocardial injury from the fall such as a cardiac contusion or pericardial effusion. I think of his echocardiogram is normal then I think from medical standpoint he could be discharged when orthopedic service and general surgery service is content with his progress. Patient supposed to have a nerve block today to help with the pain management. His x-ray still shows a small left apical pneumothorax and possible atelectasis at the left lung base. He is asymptomatic from this and should do well with incentive spirometry and early mobilization. I will follow the patient peripherally but do not feel that he needs my daily medical management. Patient is medically stable and can be transferred to the medical/surgical floor although I would continue telemetry while he is hospitalized. Subjective Subjective Interval history since last seen: Patient denies any chest pain pressure palpitations or dyspnea. His nerve blocks have worn off. He is scheduled to get further nerve blocks by anesthesia to help control his rib and hip pain from his fractures. Rhythm remains normal sinus rhythm. I have converted him from short acting Lopressor to low-dose long-acting Toprol-XL. I recommend getting an outpatient Holter or cardiac event recorder to assess stability of his atrial fibrillation. Furthermore I recommend he get an outpatient stress MPI as well as a sleep study. Patient informs me that prior to his fall from the ladder he had been training for half marathon and running regularly without any chest discomfort. Therefore I think is less likely that he has underlying ischemic heart disease nevertheless given his age I think this should be checked as an outpatient. I think his atrial fibrillation may have been lone atrial fibrillation and not a chronic condition. His [id number] score is 0 indicating he has a very low risk for stroke from atrial fibrillation and I would not recommend any long-term anticoagulation. Echocardiogram was obtained but the results are pending at this time. Chest x- ray shows a persistent small left apical pneumothorax. He has multiple left- sided rib fractures. There is some increased opacity at the left lung base probably due to atelectasis. Patient is asymptomatic from this. He is encouraged to use his incentive spirometer. Objective Last Vital Signs Temp 36.7 C 06/22/20 11:30 Pulse 64 06/22/20 09:02 Resp 16 06/22/20 09:10 BP 112/66 06/22/20 09:02 Pulse Ox 90 L 06/22/20 09:10 Laboratory Results - last 24 hr 06/21/20 06/21/20 06/21/20 12:44 17:05 21:15 WBC 6.57 RBC 3.24 L Hgb 10.1 L Hct 29.1 L MCV 89.8 MCH 31.2 MCHC 34.7 RDW 12.4 Plt Count 114 L MPV 9.9 Sodium 136 Potassium 3.5 Chloride 103 Carbon Dioxide 24.5 Anion Gap 8.5 BUN 12 Creatinine 1.22 Estimated GFR/1.73 m2 59.99 Glucose 146 H Calcium 7.9 L Magnesium Total Bilirubin 0.6 AST 55 H ALT 88 H Alkaline Phosphatase 59 Troponin I < 0.05 < 0.05 Total Protein 5.4 L Albumin 2.9 L Triglycerides Total Cholesterol LDL Cholesterol, Calc HDL Cholesterol TSH 06/22/20 06/22/20 06/22/20 06:33 06:33 06:33 WBC RBC Hgb 10.7 L Hct MCV MCH MCHC RDW Plt Count MPV Sodium 138 Potassium 3.9 Chloride 107 Carbon Dioxide 27.1 Anion Gap 3.9 BUN 11 Creatinine 1.03 Estimated GFR/1.73 m2 >= 60.00 Glucose 102 Calcium 8.4 L Magnesium 1.9 Total Bilirubin AST ALT Alkaline Phosphatase Troponin I Total Protein Albumin Triglycerides 90 Total Cholesterol 155 LDL Cholesterol, Calc 86 HDL Cholesterol 51 TSH 1.29
[2020-06-22] MEDS: oxyCODONE 5 MG TAB PO (13:48)
--- NOTE | 2020-06-22 15:22 | CHAPLAIN ---
I visited with Jeronimo when he was in the ICU. He was very pleasant and easily engaged in a conversation. 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 His has been visiting. Jeronimo seems to be comfortable here.
--- NOTE | 2020-06-22 15:28 | PT.INTREAT ---
Date of service: 06/22/20 Time of Service: 15:28 PT Notes Visit Reasons: FALL FROM HEIGHT/RIB FX;PTX/PELVIS FX Inpatient Physical Therapy Treatment Note [facility] Date: 06/22/2020 PRECAUTIONS: Fall SUBJECTIVE: Randy is pleasant and agreeable to participating in PT. In the morning, he reports significant pelvic and rib pain with movement. OBJECTIVE: PAIN: Patient complained of significant pelvic and rib pain with all movement and activity in a.m.; patient reports minimal pain with activity in p.m. BED MOBILITY/TRANSFERS Supine-sit: Min A with HOB at 60 degrees in a.m.; SBA with HOB at 60 degrees in p.m. Sit-supine: Max A x3 with HOB flat in a.m. Sit-stand: CGA Stand-sit: CGA GAIT Assistive Device: FWW Weight bearing: PWB R Assist: CGA in a.m.; CGA x2 in p.m. Distance: 4 sidesteps to R in a.m.; 30' x2 in p.m. Deviation: Standing rest throughout due to R pelvic pain, cueing for WB through B UE to offload R LE in p.m. VITALS: Vital signs were obtained due to increased pain, all WNL THEREX: Patient instructed in several lower extremity strengthening exercises, performed in a seated position, as per flow sheet. Patient demonstrates significant weakness on R due to pelvic injury, although does not complain of significant increase in pain. ASSESSMENT: Patient tolerated session with complaints of significantly increased pelvic and rib pain with activity in a.m., and slightly increased pelvic and rib pain with activity in p.m. Patient requires CGA for safety. Patient would benefit from continued gait, bed mobility, and transfer training as well as global strengthening for improved mobility for continued progression toward baseline level of function. PLAN: Continue with gait, bed mobility, and transfer training, and global strengthening TREATMENT CODE/TIME: Session 1: 30 minutes; [id number] x2 Session 2: 40 minutes; [id number] x2, [id number]
--- NOTE | 2020-06-22 16:14 | PDOC.CMPRO ---
- If Service Date Differs Date of service: 06/22/20 Time of Service: 16:14 Care Management Progress Note S/O: Randy was sitting up in a chair when CM met with him. He was pleasant and talkative and interacted well with CM. Randy stated that he continues to feel good however when he first got OOB with PT this morning he was in severe pain, unlike he has ever experienced before. He admitted that he finally asked for pain medication and was glad he did because he was able to move so much better after the medication. He stated that he did not like how it made him feel at first but the pain relief is enabling him to make more progress. 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 He proudly shared pictures of his current home which he built as well as the chair, evidencing his skill and craftsmanship. A: Randy is a 65 year old man admitted on 06/20/20 with a fractured pelvis and 9 fractured ribs. P: Randy will likely discharge home with no new services. He will follow up with his PCP and community providers as well as his plan of care. Randy will transport with his via private vehicle. CM will continue to support patient and family and assess for discharge planning needs.
[2020-06-22] MEDS: Gabapentin 100 MG CAP PO (22:27)
[2020-06-23] VITALS (43 sets, daily range): BP systolic 102–138; BP diastolic 57–103; PULSE 57–140; RESP 14–32; TEMP 35.9–37.4; O2SAT 94–98
[2020-06-23] MEDS: ACETAMINOPHEN 1,000 MG/100 ML BTL 400 MG IVPB (00:18)
[2020-06-23] MEDS: Ketorolac 15 MG/ML VIAL IVP ×4 (00:19→19:47)
[2020-06-23] MEDS: Normal Saline Flush 10 ML SYR IVP ×4 (00:21→11:23)
--- NOTE | 2020-06-23 07:53 | W.PM.PROGNOT ---
Date of Service Date of service: 06/23/20 Time of Service: 07:54 Assessment and Plan Assessment and plan (1) Atrial fibrillation with rapid ventricular response: Status: Acute Assessment and plan: -echo was neg -pt ran half-marathon during XRT for prostate CA. -echo was structurally neg -d/w hosp. recommend; outpt zio patch and will needs stress test when stable from trauma standpoint. -pt continues to respond to B blockers. -F?u w/ cards as outpt -d/c home once heart is stable- at least 24 hrs Saturday vs Saturday depending on cardiac irritability (2) Fall from roof: Status: Acute (3) Multiple fractures of ribs: Status: Acute Assessment and plan: -residual small ptx (minimal) -no penumonia -cont pulm toilet -rib blocks in am for pain control Qualifiers: Encounter type: initial encounter Laterality: left (4) Multiple pelvic fractures: Status: Acute Assessment and plan: pt is doing remarkably well w/ pain management and w/ PT -will need to continue PT as outpt -will need front wheeled walker -home aids? shower chair?? Qualifiers: Encounter type: initial encounter Fracture alignment: with stable disruption of pelvic ring (5) Pneumothorax: Status: Acute Qualifiers: Pneumothorax type: traumatic Encounter type: initial encounter Qualified Code(s): S27.0XXA - Traumatic pneumothorax, initial encounter (6) Contusion of left lung: Status: Acute Qualifiers: Encounter type: initial encounter Qualified Code(s): S27.321A - Contusion of lung, unilateral, initial encounter (7) Prostate cancer: Status: Chronic Assessment and plan: -F/u onc as scheduled -will non follow for poss healing issues of pubic ramus from XRT adn Lupron (if on). Subjective Subjective Interval history since last seen: pt back in a fib HR is 140-160 all night -this was addressed by Hospitalists. Pt is doing well. no headaches. No CP or SOB. no productive cough. no dysuria. no leg pain or swelling. He was in too much pain to walk this am. Exam Const General: cooperative, healthy appearing, comfortable, no acute distress, well developed and well groomed Nutritional Appearance: average body habitus and well nourished Orientation: alert, awake and oriented x3 HENMT Head: normal to inspection, normocephalic and atraumatic Ears: hearing grossly normal bilaterally and external ears normal General nose exam: external nose normal Face and sinus: normal facial exam and sinuses nontender Mouth: oral mucosae normal, lip normal, tongue normal and moist mucous membranes Teeth and gingiva: dentition normal Eyes General: appearance normal, both eyes and all related structures Conjunctivae: conjunctivae normal Sclera: sclerae normal Pupils: PERRL Neck Neck: normal visual inspection and full ROM Chest Chest: abnormal inspection of the chest, localized rib tenderness with anteroposterior compression and tenderness Resp Effort & Inspection: normal respiratory effort, able to speak in complete sentences, no cough, no nasal flaring, not tachypneic and no use of accessory muscles Auscultation: clear to auscultation bilaterally, no rales, no rhonchi and no wheezes Cardio Jugular venous pressure: no JVD Rate: regular rate Rhythm: regular rhythm GI Inspection: normal to inspection, no edema and non-distended Palpation: soft, no masses, nontender and No ascites Auscultation: normal bowel sounds Skin General skin exam: no rashes or lesions noted Trauma: no lacerations or abrasions Neuro General: patient alert, patient oriented x3, oriented, gait normal, moves all extremities, no focal motor deficits and CN's II-XI intact bilaterally Cognition: normal cognition Speech: speech normal Gait: normal gait Motor: muscle tone normal throughout Extrem General: normal to inspection, full ROM and no clubbing, cyanosis or edema Psych Appearance: grossly normal and well kempt Mental Status: mental status grossly normal Speech and Movement: speech and movement normal Affect: normal affect Objective Last Vital Signs Temp 36.5 C 06/23/20 07:35 Pulse 64 06/23/20 07:35 Resp 18 06/23/20 07:35 BP 125/83 06/23/20 07:35 Pulse Ox 97 06/23/20 07:35 Laboratory Results - last 24 hr 06/22/20 06:33 Magnesium 1.9 Triglycerides 90 Total Cholesterol 155 LDL Cholesterol, Calc 86 HDL Cholesterol 51 TSH 1.29
[2020-06-23] MEDS: Tamsulosin 0.4 MG CAPCR PO (07:58)
[2020-06-23] MEDS: Metoprolol CR 25 MG TABCR 12.5 MG PO (07:58)
--- NOTE | 2020-06-23 08:32 | PGE_ITS ---
Date of Service Date of service: 06/23/20 Time of Service: 08:33 Assessment and Plan Assessment and plan (1) Atrial fibrillation with rapid ventricular response: Status: Acute Assessment and plan: Switch Toprol-XL to bisoprolol. Use IV Lopressor 2.5 to 5 mg IV q1h prn sustained heart rate of 130 or greater. No anticoagulation at this point. Could consider short course of antidysrhythmic's to maintain sinus rhythm. I will discuss further with cardiology. (2) Multiple fractures of ribs: Status: Acute Assessment and plan: Early mobilization and pain management as per surgical service. Will check follow-up chest x-ray to evaluate stability of his pneumothorax and his left lower lobe atelectasis. Qualifiers: Encounter type: initial encounter Laterality: left (3) Multiple pelvic fractures: Status: Acute Assessment and plan: Pain management as per surgery. Continue with physical therapy Qualifiers: Encounter type: initial encounter Fracture alignment: with stable disruption of pelvic ring (4) Pneumothorax: Status: Acute Assessment and plan: Check follow-up chest x-ray. Qualifiers: Pneumothorax type: traumatic Encounter type: initial encounter Qualified Code(s): S27.0XXA - Traumatic pneumothorax, initial encounter (5) Contusion of left lung: Status: Acute Assessment and plan: Pulmonary toiletry with incentive spirometry. Check follow-up chest x-ray. Qualifiers: Encounter type: initial encounter Qualified Code(s): S27.321A - Cont usion of lung, unilateral, initial encounter Subjective Subjective Interval history since last seen: Patient went back into atrial fibrillation which is been sustained since 2330 last night. He went into rapid atrial fibrillation this morning but remained asymptomatic. Patient denies any chest pain pressure palpitations or shortness of breath. With any activity his heart rate gets up into the 140s. I am switching his Toprol-XL to bisoprolol continue to use IV Lopressor on a as needed basis. If we are unable to control his heart rate he may require diltiazem drip. I still would not anticoagulate him at this point given his multiple trauma and his [id number] score of 0. Echocardiogram from yesterday showed normal left ventricular and right ventricular function with no valvular abnormalities. No pericardial effusion. No wall motion abnormalities. I still feel that this is lone A. fib precipitated by his trauma however he still needs outpatient work-up for sleep apnea and a stress MPI. Patient denies any shortness of breath or cough or sputum production. He states he has been using his incentive spirometry regularly. He does have diminished breath sounds over left lung base probably due to atelectasis. I will get a follow-up chest x-ray to monitor his small apical pneumothorax as well as his atelectasis. He does understand that the atelectasis puts him at increased risk for pneumonia. He understands he needs early mobilization and continued pulmonary toiletry with incentive spirometry. Exam Narrative Exam Narrative: Middle-age male who is alert and oriented person place time circumstance sitting up in his chair eating his breakfast in no distress. Lungs reveal diminished breath sounds at the left lung base to the lower one third with right side is clear and upper lung field is clear. Heart is irregular irregular at a fast rate without murmur rub Objective Last Vital Signs Temp 36.9 C 06/23/20 08:00 Pulse 70 06/23/20 08:00 Resp 18 06/23/20 08:00 BP 130/82 06/23/20 08:00 Pulse Ox 98 06/23/20 08:00
[2020-06-23] MEDS: Milk of Magnesia 30 ML CUP PO (08:42)
[2020-06-23] MEDS: Bisoprolol 5 MG TAB PO (08:42)
--- NOTE | 2020-06-23 09:01 | PDOC.CMPRO ---
- If Service Date Differs Date of service: 06/23/20 Time of Service: 09:01 Care Management Progress Note S/O:Randy was sitting up in a chair when CM met with him. He was pleasant and open to conversation. Early this morning Randy got transferred to the ICU because he went back into rapid atrial fibrillation with rates as high as the 140s with any activity. He responded well to medication and his rate is now in the 80s and 90s, although he remains in afib. Randy stated that his pain when transferring from bed to chair and vice versa remains significant and that he has been willing to receive narcotic pain medication in order to maintain mobility. A: Randy is a 65 year old man admitted on 06/20/20 with a fractured pelvis and 9 fractured ribs. P: Randy will likely discharge home with no new services. He will follow up with his PCP and community providers as well as his plan of care. Randy will transport with his via private vehicle. CM will continue to support patient and family and assess for discharge planning needs. cc:
--- NOTE | 2020-06-23 09:20 | DI.RAD_ITS ---
EXAM: XR PORTABLE CHEST AP CLINICAL HISTORY: Left lower lobe atelectasis and rib fractures TECHNIQUE: COMPARISON: CR XR PORTABLE CHEST AP from 06/22/2020 FINDINGS: Portable semi upright chest at 0915 hours. Examination is compared with yesterday's examination. Th ere appears to be some re-expansion of left lower lobe with decreased radiodensity over the left lowe r lobe, however some left lower lobe radiodensities persist. Small left apical pneumothorax persists . Right lung remains clear and well expanded. IMPRESSION: Some interval clearing of left lower lung field noted, small left apical pneumothorax persists. RADIATION DOSE DELIVERED: Total DLP
[2020-06-23] MEDS: Acetaminophen 500 MG TAB 1000 MG PO ×3 (09:25→23:00)
[2020-06-23] MEDS: Bacitracin 30 GM TUBE TP (09:26)
[2020-06-23] MEDS: Psyllium PKT 1 EACH PO ×2 (09:26→19:47)
--- NOTE | 2020-06-23 10:00 | INDS_ITS ---
Date of service: 06/23/20 PT Notes Visit Reasons: FALL FROM HEIGHT/RIB FX;PTX/PELVIS FX Inpatient Physical Therapy Discharge Summary Dates: 06/23/2020 Dates of Service: 06/21/2020 through 06/23/2020 This is a clinical summary of care provided on the duration of dates listed above. No charge was made in the completion of this documentation. Referring Doctor: Sandoval Arteaga MD PT Orders: PT CONSULT: Eval for assistive device. He is PWBAT to right leg. Leg circus trainer to help him get his right leg in and out of bed. Precautions: Fall. Standard. PWB on R LE. Patient Profile/Admitting Diagnosis: Randy is a 65-year-old male with prostate cancer who presented to the ED on 06/20/2022 a mechanical fall 13 feet from a roof while doing an nan detailing onto a gravelled ground surface. Patient is diagnosed with pneumothorax, contusion of left lung, multiple rib fractures, multiple pelvic fractures involving the inferior and the superior pubic rami as well as the the posterior iliac wing, diverticulosis, and tinnitus. PMHX: Medical History (Updated 06/20/20 @ 18:00 by Linda Yarbrough DO) Prostate cancer Surgical History (Updated 03/12/19 @ 12:49 by Dave Colin) Colonoscopy - MAC 2007; NEG 2013; NEG Tonsillectomy and adenoidectomy Vasectomy Social History/Home Situation: Randy lives in a private home with the . Independent with all aspects of ADLs without the need for any assistive ambu latory device nor adaptive equipment. 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 He verbalizes that he plans to stay on the main floor of the house on a recliner while recovering as his bedroom is on the second floor of the house. Equipment Owned/DME: None Subjective: NT. See most recent WIRE BASKET [employer]KER notes. Objective: General Observation: NT. See most recent W[employer] BASKET [employer] notes. Mental Status: NT. See most recent WIRE BASKET [employer]KER notes. Pain: NT. See most recent WIRE BASKET MAKER notes. Vital Signs: NT. See most recent WIRE BASKET [employer]KER notes. ROM: Right Upper Extremity: Shoulder Flexion WFL. Shoulder abduction WFL. Elbow flexion WFL. Wrist flexion WFL. Opening and closing of hand WFL. Left Upper Extremity: Shoulder Flexion WFL. Shoulder abduction WFL. Elbow f lexion WFL. Wrist flexion WFL. Opening and closing of hand WFL. Right Lower Extremity: Hip flexion only allows flexion to 90 and is unable to bend beyond 90 degrees while seated at edge of bed. Hip abduction WFL. Knee flexion 45 degrees to 90 degrees. Knee extension only allows up to -45 degrees ankle dorsiflexion WFL. Ankle plantarflexion WFL. Left Lower Extremity: Hip flexion WFL. Hip abduction WFL. Knee flexion WFL. Ankle dorsiflexion WFL. Ankle plantarflexion WFL. Strength: Right Upper Extremity: Shoulder flexors 5/5. Shoulder abductors 5/5. Elbow flexors 5/5. Elbow extensors 5/5. Medical Language Specialist strong. Left Upper Extremity: Shoulder flexors 5/5. Shoulder abductors 5/5. Elbow flexors 5/5. Elbow extensors 5/5. Medical Language Specialist strong. Right Lower Extremity: Hip flexors 3-/5. Hip abductors 3-/5. Knee flexors 3-/5. Knee extensors 3-/5. Ankle dorsiflexors 4/5. Ankle plantarflexors 4/5. Left Lower Extremity:Hip flexors 4/5. Hip abductors 4/5. Knee flexors 5/5. Knee extensors 5/5. Ankle dorsiflexors 4/5. Ankle plantarflexors 5/5. Sensation: Intact as to pain and pressure on bilateral lower extremities. Bed Mobility/Transfers: Supine to sit standby assist Sit to stand contact-guard assist Stand to sit contact-guard assist Gait: Tolerated 30?2 using front wheeled walker with partial weight bearing on the right side requiring contact-guard assist x2. Balance: Static Sitting: Normal Dynamic Sitting: Normal Static Standing: Fair Dynamic Standing: Fair Assessment: Randy needed to be transferred back to ICU level of care for new onset atrial fibrillation with rapid ventricular response. He continues to demonstrates significant functional mobility decline requiring the use of a front wheeled walker for all mobility ADL performance as well as contact-guard assist from caregiver, difficulty with walking, impairment with balance, and increased risk for falls due to admitting diagnoses. Randy is a 65-year-old male with prostate cancer who presented to the ED on 06/20/2022 a mechanical fall 13 feet from a roof while doing an nan detailing onto a gravelled ground surface. Patient is diagnosed with pneumothorax, contusion of left lung, multiple rib fractures, multiple pelvic fractures involving the inferior and the superior pubic rami as well as the the posterior iliac wing, diverticulosis, and tinnitus. Patient continues to present with clinical signs and symptoms consistent with current/admitting diagnoses that have resulted to mobility limitations, gait instability, generalized weakness, and impairment of motor control as demonstrated by the following impairment level findings: 1. Decreased strength to right hip major muscle groups 2. Impaired sitting/standing balance 3. Impaired activity tolerance 4. Limitation of joint range of motion in right hip Impairments are continuing to contribute to the following functional limitations: 1. Dependent bed mobility skills 2. Increased dependence with transfers 3. Inability to safely ambulate without assistive device and physical assistance 4. Increase completion time for mobility ADL performance 5. Increased fall risk 6. Inability to negotiate steps alone safely Goals: Goals X1 week 1. Supine-Sit independent NOT MET 2. Sit-Supine independent NOT MET 3. Sit-Stand independent NOT MET 4. Stand-Sit independent NOT MET 5. Bed-Chair independent NOT MET 6. Chair-Bed independent NOT MET 7. Independent gait on level surface with use of least restrictive device for at least 300 feet without report of pain nor dyspnea NOT MET 8. Independent stair negotiation while holding onto bilateral rails for at least 5 steps without report of pain nor dyspnea NOT MET 9. Independent with home exercise program NOT MET 10. Good static and dynamic standing balance/tolerance NOT MET DISCHARGE RECOMMENDATIONS: We will evaluate patient under ICU level care today. Patient will benefit from the use of a front-wheeled walker to maximize independence at discharge destination. Patient will benefit from home health PT services in order to progress mobility level using least restrictive assistive ambulatory device, assess home safety, identify additional equipment needs, and establish a functional maintenance program that will increase ability of patient to remain at home. TREATMENT CODE/TIME: FL Thank you for the opportunity to participate in the care of this patient. Melody Bearden PT, DPT, CLT [facility] [place], [place]
--- NOTE | 2020-06-23 13:09 | IN_ITS ---
Date of service: 06/23/20 Time of Service: 13:09 PT Notes Visit Reasons: FALL FROM HEIGHT/RIB FX;PTX/PELVIS FX Physical Therapy Inpatient Initial Evaluation Date: 06/23/2020 Referring Doctor: Tonya Landry MD PT Orders: PT CONSULT: Eval for assistive device. He is PWBAT to right leg. Leg precision dancer to help him get his right leg in and out of bed. Precautions: Fall. Standard. PWB on R LE. Patient Profile/Admitting Diagnosis: Randy is a 65-year-old male with prostate cancer who presented to the ED on 06/20/2022 a mechanical fall 13 feet from a roof onto a gravelled ground surface while doing an nan detailing. Patient is diagnosed with pneumothorax, contusion of left lung, multiple rib fractures, multiple pelvic fractures involving the inferior and the superior pubic rami as well as the the posterior iliac wing, diverticulosis, and tinnitus. Patient is being re-evaluated today under ICU level care for close monitoring of new onset atrial fibrillation with rapid ventricular response. PMHX: Medical History (Updated 06/20/20 @ 18:00 by Linda Yarbrough DO) Prostate cancer Surgical History (Updated 03/12/19 @ 12:49 by Dave Colin) Colonoscopy - MAC 2007; NEG 2013; NEG Tonsillectomy and adenoidectomy Vasectomy Social History/Home Situation: Randy lives in a private home with the . Independent with all aspects of ADLs without the need for any assistive ambulatory device nor adaptive equipment. 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 He verbalizes that he plans to stay on the main floor of the house on a recliner while recovering as his bedroom is on the second floor of the house. Equipment Owned/DME: None Subjective: Randy reports less pain in the right hip with supine to sit if he tries to move both legs together with the left lower extremity splinting the right extremity. He reports increased pain level with weightbearing on the right LE although he is more a to work through his pain today impaired to initial evaluation on 06/21/2020. Objective: General Observation: Telemetry monitoring in place. IV access in right UE. Mental Status: Alert and oriented x4 Pain: 3?4/10 to right hip at rest, 8?9/10 with weight bearing; 2?3/10 in rib area Vital Signs: Heart rate high of 142 bpm and low of 76 bpm throughout session ROM: Right Upper Extremity: Shoulder Flexion WFL. Shoulder abduction WFL. Elbow flexion WFL. Wrist flexion WFL. Opening and closing of hand WFL. Left Upper Extremity: Shoulder Flexion WFL. Shoulder abduction WFL. Elbow flexion WFL. Wrist flexion WFL. Opening and closing of hand WFL. Right Lower Extremity: Hip flexion only allows flexion to 90 and is unable to bend beyond 90 degrees while seated at edge of bed. Hip abduction WFL. Knee flexion 45 degrees to 90 degrees. Knee extension only allows up to -45 degrees ankle dorsiflexion WFL. Ankle plantarflexion WFL. Left Lower Extremity: Hip flexion WFL. Hip abduction WFL. Knee flexion WFL. Ankle dorsiflexion WFL. Ankle plantarflexion WFL. Strength: Right Upper Extremity: Shoulder flexors 5/5. Shoulder abductors 5/5. Elbow flexors 5/5. Elbow extensors 5/5. 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 Left Upper Extremity: Shoulder flexors 5/5. Shoulder abductors 5/5. Elbow flexors 5/5. Elbow extensors 5/5. 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 Right Lower Extremity: Hip flexors 3-/5. Hip abductors 3-/5. Knee flexors 3-/5. Knee extensors 3-/5. Ankle dorsiflexors 4/5. Ankle plantarflexors 4/5. Left Lower Extremity:Hip flexors 4/5. Hip abductors 4/5. Knee flexors 5/5. Knee extensors 5/5. Ankle dorsiflexors 4/5. Ankle plantarflexors 5/5. Sensation: Intact as to pain and pressure on bilateral lower extremities. Bed Mobility/Transfers: Sit to stand standby assist Stand to sit standby assist Bed to chair standby assist Gait: Tolerated 180 feet of level start this ambulation inside ICU hallway or requiring use of front wheeled walker with partial weightbearing on the right LE with contact-guard assist and wheelchair follow with PT. Step to gait pattern with decreased vida and decreased stance time in right due to weight bearing precaution and pain tolerance. Reports 8?9/10 pain in the right pelvic area with weight-bearing otherwise 3?4/10 with at rest same area. Heart rate high of 146 bpm and low of 76 bpm Balance: Static Sitting: Normal Dynamic Sitting: Normal Static Standing: Fair Dynamic Standing: Fair Special Tests: Mobility Limitations Standardized Measure [facility] AM-PAC 6 clicks Basic Mobility Inpatient Short Form: Raw Score: 20 CMS Score: 36% deficit Informed Consent/Education: Patient instructed in purpose of PT consult and plan of care. Assessment: Randy will continue to receive skilled physical therapy services under ICU level of care. He demonstrates significant functional mobility decline requiring the use of a front wheeled walker for all mobility ADL performance as well as contact-guard assist from caregiver, difficulty with walking, impairment with balance, and increased risk for falls due to admitting diagnoses. Randy is a 65-year-old male with prostate cancer who presented to the ED on 06/20/2022 a mechanical fall 13 feet from a roof while doing an nan detailing onto a gravelled ground surface. Patient is diagnosed with pneumotho rax, contusion of left lung, multiple rib fractures, multiple pelvic fractures involving the inferior and the superior pubic rami as well as the the posterior iliac wing, diverticulosis, and tinnitus. Patient presents with clinical signs and symptoms consistent with current/admitting diagnoses that have resulted to mobility limitations, gait instability, generalized weakness, and impairment of motor control as demonstrated by the following impairment level findings: 1. Decreased strength to right hip major muscle groups 2. Impaired sitting/standing balance 3. Impaired activity tolerance 4. Limitation of joint range of motion in right hip Impairments are contributing to the following functional limitations: 1. Dependent bed mobility skills 2. Increased dependence with transfers 3. Inability to safely ambulate without assistive device and physical assistance 4. Increase completion time for mobility ADL performance 5. Increased fall risk 6. Inability to negotiate steps alone safely Patient is assessed as a 11210 moderate complexity based on the following: History: 65-year-old male with impairment level findings, functional limitations, and past medical history as indicated above Examination: Demonstrable impairment in strength, balance, and mobility level with underlying impairments and functional limitations as documented above Presentation:Evolving Decision Makin moderate complexity Goals: Goals X1 week 1. Supine-Sit independent 2. Sit-Supine independent 3. Sit-Stand independent 4. Stand-Sit independent 5. Bed-Chair independent 6. Chair-Bed independent 7. Independent gait on level surface with use of least restrictive device for at least 300 feet without report of pain nor dyspnea 8. Independent stair negotiation while holding onto bilateral rails for at least 5 steps without report of pain nor dyspnea 9. Independent with home exercise program 10. Good static and dynamic standing balance/tolerance Plan of Care/Treatment Plan: 1-2x/day, 7 days/week x 1 week. Plan of care has been reviewed with the COMMUNITY RELATIONS LIAISON providing the service under Physical Therapy direction. Initiate Physical Therapy intervention for strengthening, bed mobility, transfers, gait, stairs, balance training, use of assistive device. DISCHARGE RECOMMENDATIONS: Patient will benefit from the use of a front wheel walker to maximize independence at discharge destination. Patient will benefit from outpatient PT services in order to progress mobility level using least restrictive assistive ambulatory device, assess home safety, identify additional equipment needs, and establish a functional maintenance program that will increase ability of patient to remain at home. TREATMENT CODE/TIME: 34029 x 25 minutes, 9753 0 x 10 minutes beginning at 13:09 PM. Thank you for the opportunity to participate in the care of this patient. Melody Bearden PT, DPT, CLT [facility] [place], [place]
[2020-06-23] MEDS: Docusate Sodium 100 MG CAP PO (16:14)
[2020-06-23] MEDS: Polyethylene Glycol 3350 17 GM PACKET PO (16:15)
[2020-06-23] MEDS: Gabapentin 100 MG CAP PO (23:00)
[2020-06-24] VITALS (21 sets, daily range): BP systolic 106–128; BP diastolic 53–81; PULSE 55–71; RESP 14–22; TEMP 36.1–37.3; O2SAT 95–98
[2020-06-24] MEDS: Ketorolac 15 MG/ML VIAL IVP ×4 (00:44→18:19)
[2020-06-24] MEDS: Acetaminophen 500 MG TAB 1000 MG PO ×3 (06:12→21:49)
--- NOTE | 2020-06-24 08:21 | PT.INTREAT ---
Date of service: 06/24/20 Time of Service: 08:21 PT Notes Visit Reasons: FALL FROM HEIGHT/RIB FX;PTX/PELVIS FX Inpatient Physical Therapy Treatment Note [facility] Date: 06/24/2020 PRECAUTIONS: Fall, PWB on R SUBJECTIVE: Randy is pleasant and agreeable to participating in PT. He states that he is feeling pretty good today, although states that he feels he has sat too long in his bed and feels tight and stiff. OBJECTIVE: PAIN: Patient c/o R groin pain with hip abduction exercise BED MOBILITY/TRANSFERS Supine-sit: S Sit-stand: S Stand-sit: S GAIT Assistive Device: FWW Weight bearing: PWB R Assist: SBA Distance: 200' Deviation: Step-to pattern, increased vida, decreased stance time on R LE due to WB precautions and pain THEREX: Patient was instructed in several LE strengthening exercises, while in a seated position, as per flow sheet. C/o increased groin pain with hip abduction exercise, although patient demonstrates improved mobility with exercise performance compared to previous sessions. STAIRS: Up/down 3x4 and 2x6 using B rails and a step-to pattern with supervision ASSESSMENT: Patient tolerated session well, with minimal c/o increased R groin pain with ther ex. He was able to tolerate a progression in gait distance with FWW support and SBA, as well as the addition of stair training, which he was able to perform with cueing for sequence and supervision only. PLAN: Continue with global strengthening and gait training TREATMENT CODE/TIME: 30 minutes; 46965, [id number]
[2020-06-24] MEDS: Docusate Sodium 100 MG CAP PO (08:41)
[2020-06-24] MEDS: Bisoprolol 5 MG TAB PO (08:41)
[2020-06-24] MEDS: Milk of Magnesia 30 ML CUP PO (08:42)
[2020-06-24] MEDS: Tamsulosin 0.4 MG CAPCR PO (08:42)
[2020-06-24] MEDS: Bacitracin 30 GM TUBE TP (08:42)
[2020-06-24] MEDS: Polyethylene Glycol 3350 17 GM PACKET PO (08:42)
[2020-06-24] MEDS: Psyllium PKT 1 EACH PO ×2 (08:42→19:47)
[2020-06-24] MEDS: Normal Saline Flush 10 ML SYR IVP ×3 (08:42→18:19)
--- NOTE | 2020-06-24 09:51 | W.PM.PROGNOT ---
Date of Service Date of service: 06/24/20 Time of Service: 09:51 Assessment and Plan Assessment and plan (1) Atrial fibrillation with rapid ventricular response: Status: Acute Assessment and plan: tolerating bisoprolol. stable for transfer to medical/surgical bed but w/ cont. telemetry monitoring for remainder of hospitalization. no anticoagulation needed. refer to cardiology for follow upon discharge. get outpatient sleep study and stress MPI. (2) Multiple fractures of ribs: Status: Acute Assessment and plan: Early mobilization and pain management as per surgical service. Will check follow-up chest x-ray to evaluate stability of his pneumothorax and his left lower lobe atelectasis. Qualifiers: Encounter type: initial encounter Laterality: left (3) Multiple pelvic fractures: Status: Acute Assessment and plan: Pain management as per surgery. Continue with physical therapy Qualifiers: Encounter type: initial encounter Fracture alignment: with stable disruption of pelvic ring (4) Pneumothorax: Status: Acute Assessment and plan: stable small apical pneumothorax Qualifiers: Pneumothorax type: traumatic Encounter type: initial encounter Qualified Code(s): S27.0XXA - Traumatic pneumothorax, initial encounter (5) Contusion of left lung: Status: Acute Assessment and plan: Pulmonary toiletry with incentive spirometry. left lower lobe atelectasis/contusion appears improved. Qualifiers: Encounter type: initial encounter Qualified Code(s): S27.321A - Contusion of lung, unilateral, initial encounter Subjective Subjective Patient reports: no new complaints; denies shortness of breath Interval history since last seen: no chest pain. rhythm remains NSR in the 60's. no recurrent afib. Exam Narrative Exam Narrative: Middle-age male who is alert and oriented person place time circumstance sitting up in his chair eating his breakfast in no distress. Lungs reveal diminished breath sounds at the left lung base to the lower one third with right side is clear and upper lung field is clear. Heart is irregular irregular at a fast rate without murmur rub Objective Last Vital Signs Temp 36.3 C L 06/24/20 07:18 Pulse 60 06/24/20 04:32 Resp 16 06/24/20 05:00 BP 106/66 06/24/20 04:32 Pulse Ox 94 06/23/20 11:16
--- NOTE | 2020-06-24 10:09 | W.PM.PROGNOT ---
Date of Service Date of service: 06/24/20 Time of Service: 10:10 Assessment and Plan Assessment and plan (1) Fall from roof: Status: Acute (2) Multiple fractures of ribs: Status: Acute Qualifiers: Encounter type: initial encounter Laterality: left (3) Multiple pelvic fractures: Status: Acute Assessment and plan: Pain is well controlled on Tylenol and ibuprofen. He does not want to use narcotics. He will need to continue to do physical therapy on an outpatient basis. Physical therapy wants him to have a forward facing walker and a shower chair Qualifiers: Encounter type: initial encounter Fracture alignment: with stable disruption of pelvic ring (4) Pneumothorax: Status: Acute Qualifiers: Encounter type: initial encounter Pneumothorax type: traumatic Qualified Code(s): S27.0XXA - Traumatic pneumothorax, initial encounter (5) Contusion of left lung: Status: Acute Qualifiers: Encounter type: initial encounter Qualified Code(s): S27.321A - Contusion of lung, unilateral, initial encounter (6) Prostate cancer: Status: Chronic (7) Abrasions of multiple sites: Status: Acute (8) Atrial fibrillation with rapid ventricular response: Status: Acute Assessment and plan: Currently he is in normal sinus rhythm. Rate is well controlled on beta-blockers. Subjective Subjective Interval history since last seen: Pt is doing well. no headaches. No CP or SOB. no productive cough. no dysuria. no leg pain or swelling. Rate controlled since 10am yest. Did discuss this with Dr. Hale. We will need follow-up with cardiology. At this point I am attributing to his A. fib doing a combination of trauma and pain. He has been up walking and doing well from a physical therapy standpoint. His pain is controlled with Toradol and Tylenol. He has not been requiring narcotics for pain. He has not had a bowel movement yet He is doing extremely well with physical therapy Exam Const General: cooperative, healthy appearing, comfortable, no acute distress, well developed and well groomed Nutritional Appearance: average body habitus and well nourished Orientation: alert, awake and oriented x3 HENMT Head: normal to inspection, normocephalic and atraumatic Ears: hearing grossly normal bilaterally and external ears normal General nose exam: external nose normal Face and sinus: normal facial exam and sinuses nontender Mouth: oral mucosae normal, lip normal, tongue normal and moist mucous membranes Teeth and gingiva: dentition normal Eyes General: appearance normal, both eyes and all related structures Conjunctivae: conjunctivae normal Sclera: sclerae normal Pupils: PERRL Neck Neck: normal visual inspection and full ROM Chest Chest: normal inspection of the chest Resp Effort & Inspection: normal respiratory effort, able to speak in complete sentences, no cough, no nasal flaring, not tachypneic and no use of accessory muscles Auscultation: clear to auscultation bilaterally, no rales, no rhonchi and no wheezes Cardio Jugular venous pressure: no JVD Rate: regular rate Rhythm: regular rhythm GI Inspection: normal to inspection, no edema and non-distended Palpation: soft, no masses, nontender and No ascites Auscultation: normal bowel sounds Skin General skin exam: no rashes or lesions noted Trauma: no lacerations or abrasions Neuro General: patient alert, patient oriented x3, oriented, gait normal, moves all extremities, no focal motor deficits and CN's II-XI intact bilaterally Cognition: normal cognition Speech: speech normal Gait: normal gait Motor: muscle tone normal throughout Extrem General: normal to inspection, full ROM and no clubbing, cyanosis or edema Other: There is no pedal edema. Motor is 4 out of 5 in all extremities. Extremities are warm and pink. He has abrasions on scalp left forearm and left lower extremity. These are healing nicely and show no signs of infection. He is able to weight-bear and he is up walking around. He has to be careful and stand slowly when weightbearing on his right leg. Psych Appearance: grossly normal and well kempt Mental Status: mental status grossly normal Speech and Movement: speech and movement normal Affect: normal affect Objective Last Vital Signs Temp 36.3 C L 06/24/20 07:18 Pulse 60 06/24/20 04:32 Resp 16 06/24/20 05:00 BP 106/66 06/24/20 04:32 Pulse Ox 94 06/23/20 11:16
--- NOTE | 2020-06-24 12:02 | W.PM.DS.N ---
Date of service: 06/24/20 Time of Service: 12:03 DS: Diagnosis Discharge Diagnosis (1) Fall from roof: Status: Acute (2) Multiple fractures of ribs: Status: Acute (3) Multiple pelvic fractures: Status: Acute (4) Pneumothorax: Status: Acute (5) Contusion of left lung: Status: Acute (6) Prostate cancer: Status: Chronic (7) Abrasions of multiple sites: Status: Acute (8) Atrial fibrillation with rapid ventricular response: Status: Acute Discharge Plan Disposition Patient Disposition: HOME Condition: Stable Discharge Details Reason For Visit: FALL FROM HEIGHT/RIB FX;PTX/PELVIS FX Admit Date/Time: 06/20/20 17:57 Admit Provider: Tonya Landry Attending Provider: Tonya Landry Primary Care Provider: Brian Kidd Home Meds and New Rx's Prescriptions: New cyclobenzaprine 10 mg Tablet 10 mg PO TID PRN PRN90 Days Qty: 30 RF: 10 acetaminophen [Mapap Extra Strength] 500 mg Tablet 1,000 mg PO Q8H 90 Days Qty: 90 RF: 6 bisoprolol fumarate 5 mg Tablet 5 mg PO DAILY 365 Days Qty: 90 RF: 4 docusate sodium [Colace] 100 mg Capsule 100 mg PO TID PRN PRN90 Days Qty: 600 RF: 13 gabapentin 100 mg Capsule 100 mg PO HS 120 Days Qty: 90 RF: 4 oxycodone 5 mg Tablet 5 mg PO Q4H PRN PRN60 Days Qty: 15 RF: 0 polyethylene glycol 3350 17 gram Powder In Packet 17 g PO BID PRN [id number] Days Qty: 30 RF: 13 tamsulosin 0.4 mg Capsule 0.4 mg PO DAILY 365 Days Qty: 30 RF: 13 Metamucil Sugar-Free (aspart) 3.4 gram/5.8 gram Powder 1 ea PO BID 365 Days Qty: 60 RF: 13 (DME) marcie Santanac See Rx Instructions .ROUTE .MEDSUPPLY Qty: 1 RF: 0 bisoprolol fumarate 5 mg tablet 5 mg PO DAILY Qty: 30 RF: 12 methocarbamol [Robaxin-750] 750 mg tablet 750 mg PO Q8H PRN (Reason: muscle spasm) Qty: 30 RF: 12 docusate sodium [Colace] 100 mg capsule 100 mg PO BID Qty: 60 RF: 12 gabapentin 100 mg capsule 100 mg PO QHS Qty: 30 RF: 12 Metamucil (sugar) Powder 1 tbsp PO BID Qty: 1254 RF: 12 tamsulosin 0.4 mg capsule 0.4 mg PO QHS Qty: 30 RF: 12 oxycodone 5 mg capsule 5 mg PO Q4H PRNQty: 20 RF: 0 ibuprofen 600 mg tablet 600 mg PO Q6H PRNQty: 90 RF: 4 Discharge Instructions Instructions: Pelvic Fracture (DC), Rib Fracture (DC) Stand Alone Forms: Nursing Discharge Form Referrals: Kirsten Billings MD [ [facility] STAFF PHYSICIAN] - 07/29/20 10:40 am Tonya Landry DO [OSTEOPATHIC DOCTOR] - 07/01/20 9:30 am [facility] [OTHER] - 06/27/20 11:15 am (Your appointment will be at the [facility] located across from the hospital. ) Activity:: per PT Equipment/Supplies:: Walker Diet:: As Tolerated Discharge Orders Discharge Orders: Discharge Order (Routine); Ordered 06/25/20 Ordered By: Tonya Landry DS: Summary Status at Discharge Functional status at discharge: uses cane/walker Overall status at discharge: patient is back to baseline Mental Status: mental status grossly normal Speech and Movement: speech and movement normal Mood: congruent mood Affect: normal affect Exam Psych Mental Status: mental status grossly normal Speech and Movement: speech and movement normal Mood: congruent mood Affect: normal affect DS: Data Vitals/I&O Vitals and I&O: Vital Signs Temperature 36.3 C L 06/24/20 07:18 Temperature Source Temporal Artery Scan 06/24/20 07:18 Pulse 56 L 06/24/20 08:13 Pulse Rhythm Regular 06/23/20 05:06 Pulse 62 06/24/20 11:00 Respiratory Rate 22 06/24/20 11:00 Respiratory Effort Non-Labored 06/24/20 07:18 Respiratory Depth Normal 06/24/20 07:18 Respiratory Pattern Normal 06/24/20 07:18 Blood Pressure 120/77 06/24/20 08:13 Blood Pressure Mean 87 06/24/20 08:13 Blood Pressure Position Sitting 06/24/20 04:32 Pulse Oximetry 97 06/24/20 07:12 Oxygen Delivery Method Room Air 06/24/20 04:32 Oxygen Flow Rate 0 06/24/20 04:32 Pain Level 0 06/24/20 07:18 Intake & Output 06/23/20 06/24/20 06/24/20 23:59 11:59 23:59 Intake Total 700 / 1070 1490 / 1490 Output Total 1100 / 1500 200 / 200 Balance -400 / -430 1290 / 1290 Weight 85.8 kg Intake: IV Oral 700 / 940 1480 / 1480 Output: Urine 1100 / 1500 200 / 200 Other: Urine Color Light Larissa Urine Appearance Clear Clear Urine Odor Strong Voiding Methods Bedside Commode [facility] Medical History (Updated 06/24/20 @ 11:55 by Tonya Ladnry DO) Abrasions of multiple sites Prostate cancer Surgical History (Updated 03/12/19 @ 12:49 by Dave Colin) Colonoscopy - MAC 2007; NEG 2013; NEG Tonsillectomy and adenoidectomy Vasectomy Family History (Updated 03/23/20 @ 13:35 by Lisa Amado) Mother Hyperlipidemia Diabetes Father , 68 Essential hypertension Neoplasm LUNG Cancer Lung cancer Grandmother Neoplasm Grandmother Neoplasm Other Personal history of malignant neoplasm Social History (Updated 03/23/20 @ 13:33 by Lisa Amado) Smoking/Tobacco Use Status: Never Alcohol Intake: former Drug use: Never Counseling given: No Household members: spouse Housing: house Communication Needs: None Pets and animals: Yes Pets and animals: cat(s), dog(s) and other Details: rabbit Sexually active: Yes Do you think of yourself as: straight/heterosexual Current gender identity: male What is your relationship status?: How often do you talk on the phone with friends or family?: three or more times per week How often do you get together with friends or relatives?: once per week How often do you attend druze or sabianism services?: 1-3 times per year Do you belong to any clubs or organized social groups?: yes Panel score (0-1 are the most socially isolated patients): 3 What type of physical activity do you participate in: running Duration: 60-90 minutes/day Frequency: 5-6 times per week Deisi/Anabaptism: Buddhism Seatbelt use: always Helmet use: Yes Drive intox or ride w/intox concrete truck driver: No
[2020-06-24] MEDS: Magnesium Citrate 300 ML BTL 150 ML PO (12:44)
--- NOTE | 2020-06-24 15:17 | CMPROGNOTE_ITS ---
- If Service Date Differs Date of service: 06/24/20 Time of Service: 15:17 Care Management Progress Note S/O: Randy is sitting in a chair when CM comes to meet with him today. He is pleasant and talkative and shares he will be able to go home as soon as he has a bowel movement. He jokes that he tried to bargain with the doctor and promised to stop at the pharmacy to buy laxatives on his way home, if he was allowed to leave now, but says the doctor would not agree to it. CM will continue to follow. A: Jeronimo is a 65 year old male admitted to [facility] on 06/20/2020 after falling off of a roof and sustaining rib and pelvis fractures. P: Anticipate Radny will be discharged home with no new services when medically cleared by provider. His will drive him home via private vehicle when ready. Randy will follow up with his PCP, surgeon and plan of care as directed. CM provided him with a FWW in the event he gets to go home today. Randy states he has a [id number] seat in his shower and does not need any other medical equipment, with the exception of the walker. CM will continue to support patient and discharge planning needs.
[2020-06-24] MEDS: Methylnaltrexone 12 MG/0.6 ML VIAL SC (18:19)
[2020-06-24] MEDS: Gabapentin 100 MG CAP PO (21:49)
[2020-06-25] MEDS: Normal Saline Flush 10 ML SYR IVP (00:10)
[2020-06-25] MEDS: Ketorolac 15 MG/ML VIAL IVP ×2 (00:10→06:15)
[2020-06-25 03:45] VITALS: BP 118/69; PULSE 60; RESP 18; TEMP 36.6; O2SAT 95
[2020-06-25] MEDS: Acetaminophen 500 MG TAB 1000 MG PO (06:15)
[2020-06-25 07:34] VITALS: BP 101/62; PULSE 62; RESP 19; TEMP 35.9; O2SAT 99
[2020-06-25] MEDS: Bisoprolol 5 MG TAB PO (08:46)
[2020-06-25] MEDS: Tamsulosin 0.4 MG CAPCR PO (08:46)
[2020-06-25] MEDS: Bacitracin 30 GM TUBE TP (08:46)
[2020-06-25] MEDS: Cyclobenzaprine 10 MG TAB PO (10:56)
--- NOTE | 2020-06-25 16:11 | PDOC.CMDIS ---
- If Service Date Differs Date of service: 06/25/20 Time of Service: 16:11 LACE Index Scoring Tool - Questions: Length of Stay (in days): 4 - 6 Acuity (Admit via E.D.?): Yes Comorbidities: Any Tumor E.D. Visits: 0 - Answers: Total Score: 9 Risk of Readmission: Low Risk Care Management Discharge Reason for Hospitalization: Fall from roof Discharge Plan: Jeronimo will return home today with no additional services at home. He will have out patient PT, and will follow up with Surgical services, his PCP, and discharge plan of care. His will drive him home when ready. He is happy to be going home. Patient/Family Education Needs: Review discharge instructions regarding activity levels, discussion of self care needs including ask me three. Services Needed at Discharge: Outpatient Therapy (PT)
== END 2020-06-25 11:12 | disposition home or self-care (01) | DRG 964 ==
LOC: ER 18:30 → ICU 06-21 00:03 → MS 06-22 14:41 → ICU 06-23 08:07 → MS 06-24 12:12
PROVIDERS: Internal Medicine; Surgery; Admitting Provider Surgery; Emergency Provider Physician Assistant; PCP Emergency Medicine; Visit Provider Surgery
DX: S27.321A Contusion of lung, unilateral, initial encounter; S32.810A Multiple fractures of pelvis with stable disruption of pelvic ring, initial encounter for closed fracture; S22.42XA Multiple fractures of ribs, left side, initial encounter for closed fracture; S32.401A Unspecified fracture of right acetabulum, initial encounter for closed fracture; S32.19XA Other fracture of sacrum, initial encounter for closed fracture; S27.0XXA Traumatic pneumothorax, initial encounter; W13.2XXA Fall from, out of or through roof, initial encounter; C61 Malignant neoplasm of prostate; I48.91 Unspecified atrial fibrillation; K57.30 Diverticulosis of large intestine without perforation or abscess without bleeding; H93.19 Tinnitus, unspecified ear; T14.8XXA Other injury of unspecified body region, initial encounter
CPT/HCPCS: 0296T; 36415; 74177; 76942; 80048; 80053; 80061; 83690; 85027; 90471; 93005; 96361; 96365; 97110; 97162; 97530; 99222; 99231; 99232; 99233; 99239; 99254; 99285; U0003; 70450; 71045; 71260; 72125; 81003; 81015; 83735; 84443; 84484; 85018; 85025; 85610; 85730; 93010; 93306; J0131; J1885; J3490; L0172

== ENCOUNTER 2020-07-01 12:23 | Outpatient (REF) | payer OTHER, SELFPAY ==
[2020-07-01 12:37] LABS: HCT 30.6 % (40.0-50.0); HGB 10.5 g/dL (13.5-17.5); MCHC 34.3 % (32.0-36.0); MCV 90.3 fL (80-95); MPV 9.8 fL (8.0-11.0); Platelet Count 351 10^3/uL (130-400); RBC 3.39 10^6/uL (4.36-5.78); RDW 12.7 % (11.8-14.1); RDW-SD 40.7 fL; WBC 5.37 10^3/uL (4.4-10.8)
[2020-07-01 12:45] LABS: Iron 78 ug/dL (65-175); Total Iron Binding Capacity 251 ug/dL (250-450); Transferrin Sat 31 % (20-55)
[2020-07-01 13:03] LABS: Ferritin 519 ng/mL (26-388)
== END 2020-07-01 12:43 ==
LOC: LBN 12:23
PROVIDERS: PCP Emergency Medicine; Visit Provider Surgery
DX: D62 Acute posthemorrhagic anemia (principal); I48.91 Unspecified atrial fibrillation; C61 Malignant neoplasm of prostate
CPT/HCPCS: 85027; 82728; 83540; 83550

== ENCOUNTER 2020-07-01 13:26 | Outpatient (CLI) | payer OTHER, SELFPAY ==
--- NOTE | 2020-07-01 10:35 | DI.RAD_ITS ---
EXAM: XR CHEST 2V PA LATERAL CLINICAL HISTORY: trauma, pneumothorax, lt lung contusion, s/p fall from roof, S27.0XXA, TECHNIQUE: 2D digital imaging was performed. COMPARISON: CR XR PORTABLE CHEST AP from 06/23/2020 FINDINGS: MEDIASTINUM: Normal. HEART: Normal. PULMONARY VASCULATURE: Normal. LUNGS: Clear. PLEURAL SPACE: No pneumothorax. Small left pleural effusion. BONE:Multiple left rib fractures again noted. OTHER FINDINGS:Normal. IMPRESSION: 1. No pneumothorax. 2. Small left pleural effusion. 3. Multiple left rib fractures again noted. DATA REPOSITORY: RADIATION DOSE DELIVERED:
--- NOTE | 2020-07-01 10:42 | DI.RAD_ITS ---
EXAM: XR PELVIS W OBLIQUES 3V CLINICAL HISTORY: F/u on fractures, abrasions, fall from roof, multiple pelvic fx, W13.2XXA,. TECHNIQUE: 2D digital imaging was performed. COMPARISON: CT CT CHEST/ABD/PEL W from 06/20/[address] THORACIC LUMBAR SPINE REC from 06/20/[address] CHEST/ABD/PEL W from 06/20/2020 FINDINGS: There again seen fractures involving the right superior and inferior pubic rami. Mild displacement o f the right superior pubic ramus fracture is again noted. The right sacral ala fractures are best ap preciated on the CT scan. There is mild widening of the right sacroiliac joint. No new fracture is appreciated. The soft tissues are unremarkable. Degenerative changes are seen in the spine. IMPRESSION: Stable visualized pelvic fractures. DATA REPOSITORY: RADIATION DOSE DELIVERED:
== END 2020-07-01 13:46 ==
PROVIDERS: PCP Emergency Medicine; Visit Provider Surgery
DX: S32.591A Other specified fracture of right pubis, initial encounter for closed fracture (principal); W13.2XXA Fall from, out of or through roof, initial encounter; J90 Pleural effusion, not elsewhere classified; S22.42XA Multiple fractures of ribs, left side, initial encounter for closed fracture
CPT/HCPCS: 71046; 72190

== ENCOUNTER 2020-07-15 03:57 | Outpatient (CLI) | payer OTHER, SELFPAY ==
--- NOTE | 2020-07-15 08:40 | DI.RAD_ITS ---
EXAM: XR CHEST 2V PA LATERAL CLINICAL HISTORY: pain/sob/s/p chest truama /pleural effUSION,CONTUSION OF LUNG,FALL FROMROOF TECHNIQUE: COMPARISON: CR XR CHEST 2V PA LATERAL from 07/01/2020 FINDINGS: PA and lateral views of the chest were obtained and are compared with prior films of July 01. Multiple healing left rib fractures again noted. Left pleural effusion has markedly decreased in si ze in comparison with the previous examination. No pneumothorax seen. Mild atelectasis persists at the left lung base. Right lung remains clear and expanded. IMPRESSION: Interval improvement in left pleural based and intrapulmonary changes since July 01 RADIATION DOSE DELIVERED: Total DLP
--- NOTE | 2020-07-19 08:36 | W.ZIOMONITOR ---
Date of service: 07/19/20 Time of Service: 08:36 14 Day Computational Geneticist Referring Provider:: Frantz Indications:: afib Note: This is a 14-day monitor ordered for indication of atrial fibrillation. ?The patient was in normal sinus rhythm for the majority of the recording with an average heart rate of 62 bpm. ?There were 2 episodes of atrial fibrillation with a total duration of 13% of the recording. During atrial fibrillation the average heart rate was 87 bpm. ?There were no episodes of ventricular tachycardia and isolated PACs and PVCs. ?There were multiple conversion pauses with the longest lasting a little over 5 seconds.
== END 2020-07-15 04:17 ==
PROVIDERS: PCP Emergency Medicine; Visit Provider Surgery
DX: J90 Pleural effusion, not elsewhere classified (principal); S27.329A Contusion of lung, unspecified, initial encounter; S22.42XA Multiple fractures of ribs, left side, initial encounter for closed fracture
CPT/HCPCS: 71046

== ENCOUNTER 2020-08-02 11:44 | Outpatient (CLI) | payer OTHER, SELFPAY ==
--- NOTE | 2020-08-02 11:54 | DI.RAD_ITS ---
EXAM: XR PELVIS W OBLIQUES 3V CLINICAL HISTORY: f/u TECHNIQUE: COMPARISON: CR XR PELVIS W OBLIQUES 3V from 07/01/2020 FINDINGS: Previously described fractures right inferior and superior pubic rami are less easily visualized on t marifer's examination than on prior study of July 01 but there appears to be little if any interv al change in alignment. Right sacral ala fracture not well visualized on today's examination, no sug gestion of displacement. IMPRESSION: RADIATION DOSE DELIVERED: Total DLP
== END 2020-08-02 12:04 ==
PROVIDERS: PCP Emergency Medicine; Visit Provider Orthopaedic Surgery
DX: S32.82XA Multiple fractures of pelvis without disruption of pelvic ring, initial encounter for closed fracture (principal)
CPT/HCPCS: 72190

== ENCOUNTER 2020-08-09 13:08 | Outpatient (CLI) | payer OTHER, SELFPAY ==
[2020-08-11 12:56] LABS: PSA, Ultrasensitive 0.11 ng/mL (<= 4.5)
[2020-08-12 11:17] LABS: Testosterone, Total 398 ng/dL (240-950)
== END 2020-08-09 13:28 ==
PROVIDERS: PCP Emergency Medicine; Visit Provider Radiology Radiation Oncology
DX: C61 Malignant neoplasm of prostate (principal)
CPT/HCPCS: 36415; 82306; 84153; 84403; 85027; 83615

== ENCOUNTER 2020-08-17 01:55 | Outpatient (CLI) | payer OTHER, SELFPAY ==
--- NOTE | 2020-08-17 06:45 | DI.RAD_ITS ---
EXAM: XR HIP RT COMPLETE AP PELVIS CLINICAL HISTORY: F/U PELVIC FXS,H/O FALL,PELVIC IRRADIATION,W13.2XXA,S32.82XA. TECHNIQUE: 2D digital imaging was performed. COMPARISON: CR XR PELVIS W OBLIQUES 3V from 07/01/2020 CR XR PELVIS W OBLIQUES 3V from 08/02/2020 FINDINGS: BONES: There has been no change in alignment of the fractures involving the right superior and inferi or pubic rami. No new fractures or dislocations are seen. No bony destructive lesion is seen. JOINTS: No dislocation present. Degenerative changes are seen in the lower lumbar spine and the hips bilaterally. SOFT TISSUE: Normal. IMPRESSION: Stable pelvis. No new fracture or dislocation. DATA REPOSITORY: RADIATION DOSE DELIVERED:
== END 2020-08-17 02:15 ==
PROVIDERS: PCP Emergency Medicine; Visit Provider Surgery
DX: S32.82XA Multiple fractures of pelvis without disruption of pelvic ring, initial encounter for closed fracture (principal)
CPT/HCPCS: 73502

== ENCOUNTER 2020-08-17 04:42 | Outpatient (CLI) | payer OTHER, SELFPAY ==
[2020-08-17 08:16] LABS: HCT 37.4 % (40.0-50.0); HGB 12.7 g/dL (13.5-17.5); MCH 29.9 pg (27.0-33.0); MPV 9.8 fL (8.0-11.0); Platelet Count 196 10^3/uL (130-400); RBC 4.25 10^6/uL (4.36-5.78); RDW 12.3 % (11.8-14.1); RDW-SD 39.3 fL; WBC 3.44 10^3/uL (4.4-10.8)
[2020-08-17 09:41] LABS: LDH 223 U/L (85-227)
[2020-08-18 04:46] LABS: Vitamin D 25 Total 38.5 ng/ml (30-100)
== END 2020-08-17 05:02 ==
PROVIDERS: PCP Emergency Medicine; Visit Provider Surgery
DX: D62 Acute posthemorrhagic anemia (principal); I48.91 Unspecified atrial fibrillation; S22.42XD Multiple fractures of ribs, left side, subsequent encounter for fracture with routine healing
CPT/HCPCS: 36415; 82306; 85027; 83615

== ENCOUNTER 2020-10-17 02:28 | Outpatient (CLI) | payer OTHER, SELFPAY ==
[2020-10-17 12:36] LABS: HCT 43.5 % (40.0-50.0); HGB 14.6 g/dL (13.5-17.5); MCH 29.5 pg (27.0-33.0); MCHC 33.6 % (32.0-36.0); MCV 87.9 fL (80-95); MPV 11.5 fL (8.0-11.0); Platelet Count 164 10^3/uL (130-400); RBC 4.95 10^6/uL (4.36-5.78); RDW 12.6 % (11.8-14.1); RDW-SD 40.8 fL; WBC 4.49 10^3/uL (4.4-10.8)
[2020-10-17 12:55] LABS: LDH 228 U/L (85-227)
[2020-10-17 13:18] LABS: Vitamin D 25 Total 39.3 ng/ml (30-100)
[2020-10-19 22:28] LABS: Testosterone, Total 654 ng/dL (240-950)
== END 2020-10-17 02:48 ==
PROVIDERS: Surgery; PCP Emergency Medicine; Visit Provider Radiology Radiation Oncology
DX: C61 Malignant neoplasm of prostate (principal); I48.91 Unspecified atrial fibrillation; D62 Acute posthemorrhagic anemia; S32.82XD Multiple fractures of pelvis without disruption of pelvic ring, subsequent encounter for fracture with routine healing; S22.49XD Multiple fractures of ribs, unspecified side, subsequent encounter for fracture with routine healing
CPT/HCPCS: 36415; 82306; 84153; 84403; 85027; 83615

== ENCOUNTER 2021-02-09 03:16 | Outpatient (CLI) | payer OTHER, SELFPAY ==
[2021-02-10 14:46] LABS: PSA, Ultrasensitive 0.31 ng/mL (<= 4.5)
== END 2021-02-09 03:17 | disposition home or self-care (01) ==
PROVIDERS: PCP Emergency Medicine; Visit Provider Nurse Practitioner
DX: C61 Malignant neoplasm of prostate (principal)
CPT/HCPCS: 36415; 84153

== ENCOUNTER 2021-08-14 03:48 | Outpatient (CLI) | payer OTHER, SELFPAY ==
[2021-08-15 12:55] LABS: PSA, Ultrasensitive 0.19 ng/mL (<= 4.5)
[2021-08-17 14:56] LABS: Testosterone, Total 634 ng/dL (240-950)
== END 2021-08-14 03:49 | disposition home or self-care (01) ==
PROVIDERS: PCP Emergency Medicine; Visit Provider Nurse Practitioner
DX: C61 Malignant neoplasm of prostate (principal)
CPT/HCPCS: 36415; 84153; 84403

== ENCOUNTER 2021-11-03 04:38 | Outpatient (CLI) | payer BC, SELFPAY ==
[2021-11-03 13:03] LABS: Anion Gap 8.2 mmol/L (3-11); BUN 13 mg/dL (7-18); CO2 28.8 mmol/L (21.0-32.0); CREATININE 1.1 mg/dL (0.70-1.30); Calcium 8.9 mg/dL (8.5-10.1); Chloride 106 mmol/L (98-107); Glucose 84 mg/dL (74-106); Potassium 4.1 mmol/L (3.5-5.1); Sodium 143 mmol/L (136-145); TSH 1.93 uIU/mL (0.36-3.74)
== END 2021-11-03 04:39 | disposition home or self-care (01) ==
LOC: LBO 04:40
PROVIDERS: PCP Family Medicine; Visit Provider Emergency Medicine
DX: E03.9 Hypothyroidism, unspecified (principal); I10 Essential (primary) hypertension; I48.91 Unspecified atrial fibrillation
CPT/HCPCS: 36415; 80048; 84443

== ENCOUNTER 2021-11-03 04:45 | Outpatient (RCR) | payer BC, SELFPAY ==
--- NOTE | 2021-11-03 08:00 | HOLTER_ITS ---
APPROVED REPORT Conclusion This is a 24-hour Holter monitor ordered for paroxysmal atrial fibrillation The patient was in sinus rhythm for approximately 21 hours of the recording, in atrial fibrillation f or 3 hours and 13 minutes No patient symptoms were reported Average heart rate in sinus rhythm was 70-80, minimum was 50 Heart rate in atrial fibrillation was 100 -150, maximum 190 There was no high-grade AV block, no pauses greater than 3 seconds
== END 2021-11-06 23:59 | disposition home or self-care (01) ==
LOC: RT 04:45
PROVIDERS: PCP Family Medicine; Visit Provider Emergency Medicine
DX: I48.0 Paroxysmal atrial fibrillation (principal)
CPT/HCPCS: 93225; 93226

== ENCOUNTER 2022-01-10 08:54 | Outpatient (CLI) | payer BC, SELFPAY ==
--- NOTE | 2022-01-10 08:45 | RT.EKG_ITS ---
APPROVED REPORT Exam: Resting ECG Reason for Exam: afib Patient Location: O HR:68 bpm ECG Measurements Heart Rate 68 AXIS IA 184 P 21 QRSd 99 QRS -67 QT 398 T 29 QTc 424 Conclusion Sinus rhythm...normal P axis, V-rate 50- 99 Left anterior fascicular block...axis(240,-40), init forces inf Abnormal R-wave progression, late transition...QRS area<0 in V5/V6
== END 2022-01-10 08:55 | disposition home or self-care (01) ==
LOC: DI.CARD 08:55
PROVIDERS: PCP Nurse Practitioner Family; Visit Provider Internal Medicine Cardiovascular Disease
DX: I48.91 Unspecified atrial fibrillation (principal); I44.4 Left anterior fascicular block; R94.31 Abnormal electrocardiogram [ECG] [EKG]
CPT/HCPCS: 93010

== ENCOUNTER 2022-01-31 04:51 | Outpatient (CLI) | payer BC, SELFPAY ==
[2022-01-31 11:39] LABS: Abs Immature Grans 0.01 10^3/uL (0.0-0.06); Absolute Basophil Count 0.02 10^3/uL (0.0-0.2); Absolute Eosinophil Count 0.09 10^3/uL (0.0-0.7); Absolute Lymphocyte Count 0.73 10^3/uL (1.2-3.4); Absolute Monocyte Count 0.44 10^3/uL (0.1-0.8); Absolute Neutrophil Count 2.59 10^3/uL (1.2-6.7); Basophils % 0.5; Eosinophils % 2.3; HCT 44.6 % (40.0-50.0); HGB 15.1 g/dL (13.5-17.5); Immature Grans % 0.3; Lymphocytes % 18.8; MCHC 33.9 % (32.0-36.0); MCV 88.5 fL (80-95); MPV 9.6 fL (8.0-11.0); Monocytes % 11.3; Neutrophils % 66.8; Platelet Count 192 10^3/uL (130-400); RBC 5.04 10^6/uL (4.36-5.78); RDW 11.9 % (11.8-14.1); RDW-SD 38.3 fL; WBC 3.88 10^3/uL (4.4-10.8)
[2022-01-31 11:56] LABS: ALT 30 U/L (16-63); AST 21 U/L (15-37); Albumin 3.9 g/dL (3.4-5.0); Alkaline Phosphatase 88 U/L (46-116); Anion Gap 4.7 mmol/L (3-11); BUN 15 mg/dL (7-18); Bilirubin, Total 0.3 mg/dL (0.2-1.0); CO2 29.3 mmol/L (21.0-32.0); Calcium 8.8 mg/dL (8.5-10.1); Chloride 106 mmol/L (98-107); Glucose 95 mg/dL (74-106); Sodium 140 mmol/L (136-145)
[2022-02-02 16:53] LABS: PSA, Ultrasensitive 0.09 ng/mL (<= 4.5)
[2022-02-05 15:57] LABS: Testosterone, Total 659 ng/dL (240-950)
== END 2022-01-31 04:52 | disposition home or self-care (01) ==
LOC: LBO 04:51
PROVIDERS: PCP Nurse Practitioner Family; Visit Provider Nurse Practitioner Family
DX: C61 Malignant neoplasm of prostate (principal)
CPT/HCPCS: 36415; 80053; 84153; 84403; 85025

== ENCOUNTER 2022-07-31 16:02 | Outpatient (CLI) | payer MEDICARE, BC, SELFPAY ==
[2022-07-31 14:26] LABS: Abs Immature Grans 0.04 10^3/uL (0.0-0.06); Absolute Basophil Count 0.04 10^3/uL (0.0-0.2); Absolute Eosinophil Count 0.06 10^3/uL (0.0-0.7); Absolute Lymphocyte Count 0.82 10^3/uL (1.2-3.4); Absolute Monocyte Count 0.49 10^3/uL (0.1-0.8); Absolute Neutrophil Count 5.06 10^3/uL (1.2-6.7); Basophils % 0.6; Eosinophils % 0.9; HCT 42.1 % (40.0-50.0); HGB 14.5 g/dL (13.5-17.5); Immature Grans % 0.6; Lymphocytes % 12.6; MCH 30.1 pg (27.0-33.0); MCHC 34.4 % (32.0-36.0); MCV 87 fL (80-95); MPV 9.5 fL (8.0-11.0); Monocytes % 7.5; Neutrophils % 77.8; Platelet Count 198 10^3/uL (130-400); RBC 4.82 10^6/uL (4.36-5.78); RDW-SD 38.4 fL; WBC 6.51 10^3/uL (4.4-10.8)
[2022-07-31 15:15] LABS: ALT 27 U/L (16-63); AST 23 U/L (15-37); Albumin 3.9 g/dL (3.4-5.0); Alkaline Phosphatase 89 U/L (46-116); BUN 17 mg/dL (7-18); Bilirubin, Total 0.3 mg/dL (0.2-1.0); CREATININE 1.2 mg/dL (0.70-1.30); Calcium 8.8 mg/dL (8.5-10.1); Chloride 105 mmol/L (98-107); Estimated GFR 67.11 (mL/min/1.73m2); Glucose 130 mg/dL (74-106); Potassium 3.7 mmol/L (3.5-5.1); Sodium 140 mmol/L (136-145)
[2022-08-07 09:52] LABS: Testosterone, Total 449 ng/dL (240-950)
[2022-08-07 09:56] LABS: PSA, Ultrasensitive 0.13 ng/mL (<=4.5)
== END 2022-07-31 16:03 | disposition home or self-care (01) ==
LOC: LBO 16:02
PROVIDERS: PCP Nurse Practitioner Family; Visit Provider Nurse Practitioner Family
DX: C61 Malignant neoplasm of prostate (principal)
CPT/HCPCS: 36415; 80053; 84153; 84403; 85025

== ENCOUNTER → 2023-02-05 08:52 | Outpatient (BNVA) | payer MEDICARE, SELFPAY | PROVIDERS: PCP Nurse Practitioner Family; Visit Provider Internal Medicine Cardiovascular Disease | DX: Z79.01 Long term (current) use of anticoagulants (principal); I10 Essential (primary) hypertension; I48.0 Paroxysmal atrial fibrillation | CPT/HCPCS: 99213 ==

== ENCOUNTER 2023-02-19 02:52 | Outpatient (CLI) | payer MEDICARE, SELFPAY ==
[2023-02-20 19:55] LABS: PSA, Ultrasensitive 0.12 ng/mL (<= 4.5)
[2023-02-23 16:27] LABS: Testosterone, Total 623 ng/dL (240-950)
== END 2023-02-19 02:53 | disposition home or self-care (01) ==
PROVIDERS: PCP Nurse Practitioner Family; Visit Provider Nurse Practitioner Family
DX: C61 Malignant neoplasm of prostate (principal)
CPT/HCPCS: 36415; 84153; 84403

== ENCOUNTER 2023-05-21 03:14 | Outpatient (CLI) | payer MEDICARE, SELFPAY ==
[2023-05-21 10:54] LABS: Calculated LDL 140 mg/dL (<100); Cholesterol 221 mg/dL (<200); HDL Cholesterol 45 mg/dL (40-60); Triglyceride 183 mg/dL (<150)
== END 2023-05-21 03:15 | disposition home or self-care (01) ==
LOC: LBO 03:15
PROVIDERS: PCP Nurse Practitioner Family; Visit Provider Nurse Practitioner Family
DX: I10 Essential (primary) hypertension (principal); E78.5 Hyperlipidemia, unspecified; I48.0 Paroxysmal atrial fibrillation
CPT/HCPCS: 36415; 80061

== ENCOUNTER 2023-10-16 04:22 | Outpatient (CLI) | payer MEDICARE, SELFPAY ==
[2023-10-17 19:58] LABS: PSA, Ultrasensitive 0.19 ng/mL (<= 4.5)
== END 2023-10-16 04:23 | disposition home or self-care (01) ==
PROVIDERS: PCP Nurse Practitioner Family; Visit Provider Nurse Practitioner
DX: C61 Malignant neoplasm of prostate (principal)
CPT/HCPCS: 36415; 84153

== ENCOUNTER 2024-02-04 07:56 | Outpatient (CLI) | payer MEDICARE, SELFPAY ==
--- NOTE | 2024-02-04 07:45 | RT.EKG_ITS ---
APPROVED REPORT Exam: Resting ECG Reason for Exam: PAF Patient Location: O HR:50 bpm ECG Measurements Heart Rate 50 AXIS NC 202 P -2 QRSd 99 QRS -54 QT 445 T 23 QTc 406 Conclusion Sinus rhythm...normal P axis, V-rate 50- 99 Left anterior fascicular block...axis(240,-40), init forces inf
== END 2024-02-04 07:57 | disposition home or self-care (01) ==
LOC: DI.CARD 08:01
PROVIDERS: PCP Nurse Practitioner Family; Visit Provider Internal Medicine Cardiovascular Disease
DX: I48.0 Paroxysmal atrial fibrillation (principal)
CPT/HCPCS: 93010

== ENCOUNTER → 2024-02-04 09:37 | Outpatient (BNVA) | payer MEDICARE, SELFPAY | PROVIDERS: PCP Nurse Practitioner Family; Visit Provider Internal Medicine Cardiovascular Disease | DX: I44.4 Left anterior fascicular block (principal); I48.0 Paroxysmal atrial fibrillation; I10 Essential (primary) hypertension | CPT/HCPCS: 93005; 99213 ==

== ENCOUNTER 2024-03-13 05:08 | Outpatient (CLI) | payer MEDICARE, SELFPAY ==
[2024-03-16 11:38] LABS: PSA, Ultrasensitive 0.09 ng/mL (<= 4.5)
== END 2024-03-13 05:09 | disposition home or self-care (01) ==
PROVIDERS: PCP Nurse Practitioner Family; Visit Provider Nurse Practitioner
DX: C61 Malignant neoplasm of prostate (principal)
CPT/HCPCS: 36415; 84153

== ENCOUNTER 2024-09-17 03:33 | Outpatient (CLI) | payer MEDICARE, SELFPAY ==
[2024-09-17 09:51] LABS: Calculated LDL 170 mg/dL (<100); Cholesterol 252 mg/dL (<200); HDL Cholesterol 48 mg/dL (40-60); Triglyceride 170 mg/dL (<150)
[2024-09-19 11:20] LABS: PSA, Ultrasensitive 0.11 ng/mL (<= 4.5)
== END 2024-09-17 03:34 | disposition home or self-care (01) ==
PROVIDERS: PCP Nurse Practitioner Family; Visit Provider Nurse Practitioner
DX: Z13.6 Encounter for screening for cardiovascular disorders (principal); C61 Malignant neoplasm of prostate
CPT/HCPCS: 36415; 80061; 84153

== ENCOUNTER → 2025-02-02 09:38 | Outpatient (BNVA) | payer MEDICARE, SELFPAY | PROVIDERS: PCP Nurse Practitioner Family; Visit Provider Internal Medicine Cardiovascular Disease | DX: I48.0 Paroxysmal atrial fibrillation (principal) | CPT/HCPCS: 99213 ==

== ENCOUNTER 2025-03-02 02:41 | Outpatient (CLI) | payer MEDICARE, SELFPAY ==
[2025-03-05 18:32] LABS: PSA, Ultrasensitive 0.11 ng/mL (<= 4.5)
== END 2025-03-02 02:42 | disposition home or self-care (01) ==
PROVIDERS: PCP Nurse Practitioner Family; Visit Provider Physician Assistant
DX: C61 Malignant neoplasm of prostate (principal)
CPT/HCPCS: 36415; 84153

== ENCOUNTER 2025-07-23 09:01 | Emergency (ER) | payer MEDICARE, SELFPAY ==
[2025-07-23 09:09] VITALS: BP 133/84; PULSE 63; RESP 16; TEMP 36.9; O2SAT 96
--- NOTE | 2025-07-23 09:40 | W.ED.GENAD ---
Discharge Plan Disposition Patient Disposition: Home Discharge Details Clinical Impression: Fracture of left tibia Primary Care Provider: Humberto Lux ED Provider: Justin Mahoney Home Meds and New Rx's Prescriptions: Continued amlodipine 10 mg tablet 10 mg PO DAILY Qty: 90 3RF Xarelto 20 mg tablet See Rx Instructions .ROUTE .COMPLEX Qty: 90 3RF Dose Instruction: TAKE 1 TABLET BY MOUTH EVERY EVENING WITH MEAL Rx Instructions: TAKE 1 TABLET BY MOUTH EVERY EVENING WITH MEAL Discharge Instructions Instructions: Lower Leg Fracture ED Additional Instructions: You were seen in the emergency department for the fracture of your left tibia after a fall from a few feet up into a depression landing on your heel. Please do not weight-bear, remain in your splint, rest ice compress and elevate often. Take regular doses of Tylenol for pain, call the orthopedics office as you will likely need to discontinue your blood thinner a couple days prior to elective surgical procedure Referrals: [facility] [Provider Group] Humberto Lux, [address] [employer] [Primary Care Provider, Medicine] Discharge Data Discharge Date/Time-TO BE ENTERED AT DEPARTURE: 07/23/25 12:05 HPI General Date/Time Provider Initiated Documentation: 07/23/25 09:21. 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 Quality described as painful all through his distal anterior can, no radiation to numbness/tingling, endorses some mild swelling and bruising to L anterior ankle, denies knee pain, denies LOC/headstrike, denies neck pain, no bowel/urinary changes. Severity is described as moderate. Palliating factors include nothing specific. Provoking factors include weight-bearing. Patient is R-side dominant. Patient is anticoagulated on Xarelto. Related Data Home Medications ?Medication ?Instructions ?Recorded ?Confirmed amlodipine 10 mg tablet 10 mg PO DAILY #90 tabs 06/02/25 07/23/25 rivaroxaban 20 mg tablet (Xarelto) See Rx Instructions .Route 06/08/25 07/23/25 .COMPLEX #90 tabs Previous Rx's ?Medication ?Instructions ?Recorded amlodipine 10 mg tablet 10 mg PO DAILY #90 tabs 06/02/25 rivaroxaban 20 mg tablet (Xarelto) See Rx Instructions .Route 06/08/25 .COMPLEX #90 tabs Allergies Allergy/AdvReac Type Severity Reaction Status Date / Time No Known Drug Allergies Allergy unknown Verified 07/23/25 09:11 General Stated Complaint: Orthopedic NICHOLAS: 4 Review of Systems All systems reviewed & are unremarkable except as noted in HPI and below Exam Narrative Exam Narrative: GENERAL APPEARANCE: Well-nourished, non-toxic, awake and alert, atraumatic, no acute distress. SKIN: Warm, pink, dry, intact, without rashes/lesions/ulcerations. HEAD: Normocephalic, atraumatic, normal hair distribution for gender/age. EYES: Normal conjunctiva, no exudates on lids/lashes. ENT: Nares patent, no circumoral cyanosis, no facial swelling NECK: Supple, trachea midline, painless cervical ROM. LUNGS/CHEST: Non-labored respirations, normal A/P diameter, symmetrical expansion, no chest wall deformity HEART (CV/PV): Regular rate, L dorsalis pedis pulse 2+, no peripheral edema, no JVD. ABDOMEN: Soft, non-distended, no guarding. MSK: L distal can and ankle anterior tenderness, no point tenderness/crepitus to medial/lateral malleolus, brisk capillary refill, sensation intact, moving all extremities without weakness, no cyanosis, spine midline without tenderness, normal curvature. NEURO: Mental Status AAOx4 - alert to person, place, time, events No facial droop, no forehead involvement. Motor: No focal weakness - strength 5/5 in bilateral UEs and LEs, proximal and distal, symmetric. Sensory: sensation intact to light touch globally. Gait NT. PSYCH: euthymic, cooperative, pleasant, appropriate speech Course Vital Signs Vital signs: Vital Signs Temperature 36.9 C 07/23/25 09:09 Pulse 63 07/23/25 09:09 Respiratory Rate 16 07/23/25 09:09 Blood Pressure 133/84 07/23/25 09:09 Pulse Oximetry 96 07/23/25 09:09 Temperature 36.9 C 07/23/25 09:09 Pulse 63 07/23/25 09:09 Respiratory Rate 16 07/23/25 09:09 Blood Pressure 133/84 07/23/25 09:09 Pulse Oximetry 96 07/23/25 09:09 Procedure Orthopedic Splinting/Casting Provider that performed the procedure: Justin Mahoney Standard Time Out Performed: No Patient Consented: Verbally Side: left Lower Extremity Injury Location: lower leg Lower Extremity Immobilizer: posterior splint Weight bearing status: non-weight bearing as tolerated Other Orthopedic Equipment: crutches Medical Decision Making This dictation utilizes [id number] dictation software and may contain unedited grammatical errors. 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 Quality described as painful all through his distal anterior can, no radiation to numbness/tingling, endorses some mild swelling and bruising to L anterior ankle, denies knee pain, denies LOC/headstrike, denies neck pain, no bowel/urinary changes. Severity is described as moderate. Palliating factors include nothing specific. Provoking factors include weight-bearing. Patient is R-side dominant. Patients' medical history: History of atrial fibrillation, BPH, diverticulosis, hypertension. Family and social history: noncontributory. Pertinent exam findings / vital signs include distal left mid can tenderness through the anterior ankle, no medial or lateral malleoli or tenderness, mild edema 1+ through the midfoot, left dorsalis pedis pulse 2+, brisk capillary refill, sensation intact, range of motion limited to pain, no knee tenderness. Differential / pathologies of concern include fracture, sprain/strain. Diagnostic studies of: - XR L ankle, XR L tib/fib-shows intra-articular tibial fracture that is nondisplaced. Interventions of: - Discussed with orthopedics Dr. Miles will likely need to intervene surgically, I counseled the patient on this and he was placed in a posterior leg splint, recommended to RICE through the splint, use crutches with nonweightbearing only, take therapeutic dose of Tylenol and ibuprofen and follow-up with orthopedics this week. 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 Findings not consistent with neurovascular compromise. Disposition of fracture of left tibia. Patient verbalized understanding of the plan and return to ED criteria and engaged in shared decision making. Medical Records Medical records reviewed: Yes I reviewed the patient's medical records. Imaging Data Radiologic Study: Attestation: I personally reviewed and interpreted this imaging study as follows: Imaging: X-Ray Radiologist's impression: EXAM: XR ANKLE LT COMPLETE CLINICAL HISTORY: L ankle pain TECHNIQUE: 2D digital imaging was performed. Three views of the ankle. Two views of the leg. COMPARISON: CR XR TIB/FIB LT from 07/23/2025 FINDINGS: BONES: There is a nondisplaced fracture seen extending from the distal metadiaphysis through to the articular surface, seen on the lateral view. No additional fractures are identified elsewhere in the ankle or tibia and fibula. No bony destructive lesion is seen. JOINTS:The ankle mortise is normally aligned. SOFT TISSUE: Swelling around the malleoli. IMPRESSION: Nondisplaced fracture of the distal tibia. PFSH All Active Problems (Updated 07/23/25 @ 11:33 by RASHAAD Lopez) Fracture of left tibia (Acute) Hypertension (Chronic) Paroxysmal atrial fibrillation (Acute) Atrial fibrillation with rapid ventricular response (Acute) Prostate cancer (Chronic) In remission BPH with elevated PSA (Acute) Diverticulosis (Acute) Tinnitus (Acute) Medical History COVID Actinic keratoses Removed Pelvic irradiation Multiple pelvic fractures Multiple fractures of ribs Surgical History Status post tonsillectomy and adenoidectomy Status post vasectomy Vasectomy Tonsillectomy and adenoidectomy Colonoscopy - MAC 2007; NEG 2013; NEG Family History Mother Hyperlipidemia Diabetes Father , 68 Essential hypertension Neoplasm LUNG Cancer Lung cancer Grandmother Neoplasm Grandmother Neoplasm Brother No problems noted. Brother No problems noted. Brother No problems noted. Son No problems noted. Son No problems noted. Other Personal history of malignant neoplasm Social History Smoking/Tobacco Use Status: Never Smoking risk assessment performed?: Yes Alcohol Intake: former Drug use: Never Substance use type: does not use Counseling given: No Caregiver/Support person: No Household members: spouse Housing: house Communication Needs: None Do you need help understanding health information?: Never Pets and animals: Yes Pets and animals: cat(s), dog(s) and other Details: rabbit Sexually active: Yes Do you think of yourself as: straight/heterosexual Current gender identity: male What is your relationship status?: How often do you talk on the phone with friends or family?: three or more times per week How often do you get together with friends or relatives?: once per week How often do you attend anglican or tenriism services?: 1-3 times per year Do you belong to any clubs or organized social groups?: yes Panel score (0-1 are the most socially isolated patients): 3 What type of physical activity do you participate in: bicycling and running Duration: 30-45 minutes/day Frequency: 3-4 times per week Deisi/Orthodoxy: No preference Seatbelt use: always Helmet use: Yes Helmet use: always Drive intox or ride w/intox certified driver examiner: No Do you feel safe at home: Yes Do you feel safe in your relationship?: Yes
--- NOTE | 2025-07-23 10:10 | DI.RAD_ITS ---
Exam(s) XR TIB/FIB LT XR ANKLE LT COMPLETE EXAM: XR ANKLE LT COMPLETE CLINICAL HISTORY: L ankle pain TECHNIQUE: 2D digital imaging was performed. Three views of the ankle. Two views of the leg. COMPARISON: CR XR TIB/FIB LT from 07/23/2025 FINDINGS: BONES: There is a nondisplaced fracture seen extending from the distal metadiaphysis through to the articular surface, seen on the lateral view. No additional fractures are identified elsewhere in the ankle or tibia and fibula. No bony destructive lesion is seen. JOINTS:The ankle mortise is normally aligned. SOFT TISSUE: Swelling around the malleoli. IMPRESSION: Nondisplaced fracture of the distal tibia. DATA REPOSITORY: RADIATION DOSE DELIVERED:
[2025-07-23 11:10] VITALS: BP 136/88; PULSE 58; RESP 16; O2SAT 98
[2025-07-23 12:03] VITALS: BP 118/80; PULSE 60; RESP 16; O2SAT 98
--- NOTE | 2025-07-24 08:37 | NUR.NOTE ---
Accessed Pt chart to print a face sheet and document injury on the Patient Product Agreement for Surgi-Care
--- NOTE | 2025-07-26 12:13 | NUR.NOTE ---
Access chart to determine if a referral to Ortho had been done for [facility]. Nursing Note:
== END 2025-07-23 12:05 | disposition home or self-care (01) ==
PROVIDERS: Emergency Provider Physician Assistant; PCP Nurse Practitioner Family
DX: S82.392A Other fracture of lower end of left tibia, initial encounter for closed fracture (principal); W17.89XA Other fall from one level to another, initial encounter
CPT/HCPCS: 29515; 99284; 73590; 73610; 99283

== ENCOUNTER 2025-07-27 11:08 | Outpatient (CLI) | payer MEDICARE, SELFPAY ==
--- NOTE | 2025-07-27 10:45 | DI.CT_ITS ---
Exam(s) CT LOWER EXTREMITY LT WO EXAM: CT LOWER EXTREMITY LT WO CLINICAL HISTORY: ? SURGICAL PLANNING/S8A fx lt tibia. TECHNIQUE: Imaging Protocol: Axial computed tomography images with coronal and sagittal reformatted images were created and reviewed. COMPARISON: CR XR TIB/FIB LT from 07/23/2025 CR XR ANKLE LT COMPLETE from 07/23/2025 FINDINGS: Bones: There is a coronally oriented fracture through the distal half of the tibia. It extends distally to the articular surface and into the medial malleolus. The fracture is not displaced. There is also nondisplaced fracture of the posterior lateral aspect of the talar dome (series 8 images 38 through 41; series 3 image 538). No cellulitic or osteomyelitic changes are identified. There is no evidence of joint space narrowing or cystic degeneration seen. There are no suspicious lytic or sclerotic lesions identified. Soft Tissues: There is edema seen in the soft tissues of the lower leg, ankle and foot. IMPRESSION: 1. Nondisplaced fracture through the distal half of the tibia extending into the joint space involving the medial malleolus. 2. Nondisplaced fracture of the posterolateral aspect of the talar dome. RADIATION DOSE DELIVERED: 235.58mGy.cm Total DLP 235.58mGy.cm Total DLP DATA REPOSITORY: All CT scans at this facility are submitted to the National Radiology Data Registry (NRDR) Dose Index Registry (DIR) with the [employer] (ACR). RADIATION OPTIMIZATION: All CT scans at this facility use at least one of these dose optimization techniques: automated exposure control; mA and/or kV adjustment per patient size (includes targeted exams where dose is matched to clinical indication); or iterative reconstruction.
== END 2025-07-27 11:28 ==
LOC: DI 11:08
PROVIDERS: PCP Nurse Practitioner Family; Visit Provider Student in an Organized Health Care Education/Training Program
DX: S82.122A Displaced fracture of lateral condyle of left tibia, initial encounter for closed fracture (principal); X58.XXXA Exposure to other specified factors, initial encounter
CPT/HCPCS: 73700

== ENCOUNTER 2025-08-10 13:10 | Outpatient (CLI) | payer MEDICARE, SELFPAY ==
--- NOTE | 2025-08-10 09:03 | DI.RAD_ITS ---
Exam(s) XR ANKLE LT 2V EXAM: XR ANKLE LT 2V CLINICAL HISTORY: F/U FRACTURE TECHNIQUE: 2D digital imaging was performed of the left ankle. Two images were obtained. AP and lateral views were obtained. COMPARISON: CR XR ANKLE LT COMPLETE from 07/23/[address] LOWER EXTREMITY LT WO from 07/27/2025 FINDINGS: BONES: There has been no change in alignment of the intra-articular fracture involving the distal tibia. No bony destructive lesion is seen. JOINTS:The ankle mortise is normally aligned. SOFT TISSUE: There is soft tissue swelling around the ankle. IMPRESSION: Stable alignment of the intra-articular distal left tibial fracture. DATA REPOSITORY: RADIATION DOSE DELIVERED:
== END 2025-08-10 13:11 | disposition home or self-care (01) ==
LOC: DIORS 13:10
PROVIDERS: PCP Nurse Practitioner Family; Referring Provider Nurse Practitioner Family; Visit Provider Student in an Organized Health Care Education/Training Program
DX: S82.302D Unspecified fracture of lower end of left tibia, subsequent encounter for closed fracture with routine healing (principal); X58.XXXD Exposure to other specified factors, subsequent encounter
CPT/HCPCS: 99213; 73600

== ENCOUNTER 2025-08-24 09:45 | Outpatient (CLI) | payer MEDICARE, SELFPAY ==
--- NOTE | 2025-08-24 09:18 | DI.RAD_ITS ---
Exam(s) XR ANKLE LT 2V EXAM: XR ANKLE LT 2V CLINICAL HISTORY: F/U FRACTURE TECHNIQUE: 2D digital imaging was performed. Two views. COMPARISON: CR XR ANKLE LT COMPLETE from 07/23/2025 CR XR ANKLE LT 2V from 08/10/2025 FINDINGS: BONES: Stable alignment of distal tibial fracture. No bony destructive lesion is seen. JOINTS:No joint space narrowing. Stable appearance of ankle mortise.. SOFT TISSUE: Swelling around the malleoli. IMPRESSION: Stable fracture alignment. DATA REPOSITORY: RADIATION DOSE DELIVERED:
== END 2025-08-24 09:46 | disposition home or self-care (01) ==
LOC: DIORS 09:45
PROVIDERS: PCP Nurse Practitioner Family; Referring Provider Nurse Practitioner Family; Visit Provider Student in an Organized Health Care Education/Training Program
DX: S82.302D Unspecified fracture of lower end of left tibia, subsequent encounter for closed fracture with routine healing (principal); X58.XXXD Exposure to other specified factors, subsequent encounter
CPT/HCPCS: 99213; 73600

== ENCOUNTER 2025-09-21 11:29 | Outpatient (CLI) | payer MEDICARE, SELFPAY ==
--- NOTE | 2025-09-21 10:00 | DI.RAD_ITS ---
Exam(s) XR ANKLE LT COMPLETE EXAM: XR ANKLE LT COMPLETE CLINICAL HISTORY: F/U FRACTURE TECHNIQUE: 2D digital imaging was performed of the left ankle. Three images were obtained. AP and lateral views were obtained. COMPARISON: CR XR ANKLE LT COMPLETE from 07/23/2025 CR XR ANKLE LT 2V from 08/24/2025 FINDINGS: BONES: There has been no change in alignment of the nondisplaced intra-articular fracture of the distal tibia. There is no new fracture. No bony destructive lesion is seen. JOINTS:The ankle mortise is normally aligned. SOFT TISSUE: Normal. IMPRESSION: Stable distal tibial fracture. DATA REPOSITORY: RADIATION DOSE DELIVERED:
== END 2025-09-21 11:30 | disposition home or self-care (01) ==
LOC: DIORS 11:29
PROVIDERS: PCP Nurse Practitioner Family; Referring Provider Nurse Practitioner Family; Visit Provider Student in an Organized Health Care Education/Training Program
DX: S82.302D Unspecified fracture of lower end of left tibia, subsequent encounter for closed fracture with routine healing (principal); X58.XXXD Exposure to other specified factors, subsequent encounter
CPT/HCPCS: 99213; 73610